=== PATIENT | female | born 1995 | race Caucasian/White ===

== ENCOUNTER 2016-11-03 21:11 | Emergency (ER) | payer BC, MEDICAID ==
[~2016-11-03] VITALS: Ht 170.2 cm; Wt 86.6 kg
[~2016-11-03 21:11] MED LIST: ANTI14DR4 OT; AZIT250T81 PO; HYDR-3729 PO; IBUP-1773 PO; LANS30TA3 PO; PREN1TAB71 PO
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
[2016-11-03] MEDS: ONDANSETRON 4 MG (ZOFRAN) ORAL DISSOLVE TAB PO ONE (23:10)
[2016-11-04 00:21] VITALS: BP 0/0
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
--- NOTE | 2016-11-04 07:39 | Diagnostic Imaging Report ---
INDICATION: Neck pain. COMPARISON: None. FINDINGS: 3 views of cervical column demonstrate normal alignment. There is no subluxation or fracture. No osseous lesion. IMPRESSION: Negative cervical spine. Dictated by: Dictated on workstation # [id number]
== END 2016-11-04 00:21 | disposition home or self-care (01) ==
LOC: EDUNIT# 21:11 → ER 21:13
DX: S29.011A Strain of muscle and tendon of front wall of thorax, initial encounter (principal); F17.210 Nicotine dependence, cigarettes, uncomplicated; V48.5XXA Car driver injured in noncollision transport accident in traffic accident, initial encounter
CPT/HCPCS: 71111; 72040; 72072; 84703; 99283

== ENCOUNTER 2017-07-12 22:15 | Emergency (ER) | payer OTHER ==
[~2017-07-12] VITALS: Ht 170.2 cm; Wt 84.4 kg
--- OUTSIDE RECORDS SUMMARY | 2017-07-12 22:21 | XMS REPORT ---
Author ARTURO Langford [facility] eClinicalWorks Address Unknown Phone Unavailable Care Team Providers Care Grails Web Application Developer Name Role Phone ARTURO VARGAS CP Unavailable Allergies No Known Allergies Problems Problem Type Condition ICD-9 Code Onset Dates Condition Status Problem Supervision of other normal V22.1 Active Problem GERD (gastroesophageal reflux disease) 530.81 Active Medications Medication Code System Code Instructions Start Date End Date Status Dosage Keflex [facility] [address]-07 500 MG Orally 4 times a day Dec 02, 2014Dec 1 capsule Results No Known Results Summary Purpose eClinicalWorks Submission
--- OUTSIDE RECORDS SUMMARY | 2017-07-12 22:21 | XMS REPORT ---
Author ARTURO Langford [facility] eClinicalWorks Address Unknown Phone Unavailable Care Team Providers Care Anodizer Name Role Phone ARTURO VARGAS CP Unavailable Allergies No Known Allergies Problems Problem Type Condition ICD-9 Code Onset Dates Condition Status Problem Supervision of other normal V22.1 Active Problem GERD (gastroesophageal reflux disease) 530.81 Active Medications No Known Medications Results No Known Results Summary Purpose eClinicalWorks Submission
--- OUTSIDE RECORDS SUMMARY | 2017-07-12 22:21 | XMS REPORT ---
Author ARTURO Langford [facility] eClinicalWorks Address Unknown Phone Unavailable Care Team Providers Care Pulp Plant Supervisor Name Role Phone ARTURO VARGAS CP Unavailable Allergies No Known Allergies Problems Problem Type Condition ICD-9 Code Onset Dates Condition Status Problem Supervision of other normal V22.1 Active Problem GERD (gastroesophageal reflux disease) 530.81 Active Medications No Known Medications Results No Known Results Summary Purpose eClinicalWorks Submission
--- OUTSIDE RECORDS SUMMARY | 2017-07-12 22:21 | XMS REPORT ---
Author Author JULIANA DAILY Organization [facility] Address [address] [place] [address] Care Team Providers Care Welfare Investigator Name Role Phone JULIANA DAILY Unavailable PROBLEMS Type Condition ICD9-CM Code [id number] Code Onset Dates Condition Status SNOMED Code Problem GERD (gastroesophageal reflux disease) 530.81 Active 178976140 Problem Intractable migraine with aura without status migrainosus G43.119 Active 055924320 Problem Severe major depression F32.2 Active 227365793 Problem PTSD (post-traumatic stress disorder) F43.10 Active 30270969 Problem Anxiety, generalized F41.1 Active 09836311 Problem Nightmares F51.5 Active 783960975 Problem Nightmare F51.5 Active 343415206 ALLERGIES Substance Reaction Event Type Date Status Penicillin V Potassium Unknown Drug Allergy May, Active Latex Unknown Non Drug Allergy May, Active SOCIAL HISTORY Never Assessed PLAN OF CARE Activity Details Follow Up Will schedule when device arrives Reason: VITAL SIGNS Height 67 in 2016-05-24 Weight 200.3 lbs 2016-05-24 Temperature 97.8 degrees Fahrenheit 2016-05-24 Heart Rate 90 bpm 2016-05-24 Respiratory Rate 18 2016-05-24 BMI 31.37 kg/m2 2016-05-24 Blood pressure systolic 128 mmHg 2016-05-24 Blood pressure diastolic 77 mmHg 2016-05-24 MEDICATIONS Medication Instructions Dosage Frequency Start Date End Date Duration Status Cephalexin 500 MG Orally every 12 hrs 1 tablet 12h Active RESULTS Name Result Date Reference Range TEST, URINE (IN HOUSE) 2016-05-24 RESULTS Negative Lot # [id number] Control + Exp date PROCEDURES No Known procedures IMMUNIZATIONS No Known Immunizations MEDICAL (GENERAL) HISTORY Type Description Date Medical History migraine headaches Surgical History wisdom teeth extraction Hospitalization History Childbirth only
--- OUTSIDE RECORDS SUMMARY | 2017-07-12 22:21 | XMS REPORT ---
Author ARTURO Langford [facility] eClinicalWorks Address Unknown Phone Unavailable Care Team Providers Care Welt Edge Rounder Name Role Phone ARTURO VARGAS CP Unavailable Allergies No Known Allergies Problems Problem Type Condition ICD-9 Code Onset Dates Condition Status Problem Supervision of other normal V22.1 Active Assessment Supervision of other normal V22.1 Active Problem GERD (gastroesophageal reflux disease) 530.81 Active Assessment Group B Streptococcus carrier, antepartum 648.93 Active Medications No Known Medications Procedures Procedure Coding System Code Date Office Visit, Est Pt., Level 3 CPT-4 11537 Nov 23, 2014 URINE-NO MICRO CPT-4 51007 Nov 23, 2014 Vital Signs Date/Time: Nov 23, 2014 Temperature 97.1 F Weight 205.5 lbs Height 67 in BMI 32.186 Index Blood Pressure Diastolic 78 mmHg Blood Pressure Systolic 124 mmHg Cardiac Monitoring Heart Rate 78 bpm Results No Known Results Summary Purpose eClinicalWorks Submission
--- OUTSIDE RECORDS SUMMARY | 2017-07-12 22:21 | XMS REPORT ---
Author Author MALDONADO LEONARD Organization [facility] Address [address] [place] [address] Care Team Providers Care Logistics Solution Manager Name Role Phone MALDONADO LEONARD Unavailable PROBLEMS Type Condition ICD9-CM Code IND06-MI Code Onset Dates Condition Status SNOMED Code Problem GERD (gastroesophageal reflux disease) 530.81 Active 072084191 Problem Intractable migraine with aura without status migrainosus G43.119 Active 585618405 Problem Severe major depression F32.2 Active 565973202 Problem PTSD (post-traumatic stress disorder) F43.10 Active 18700391 Problem Anxiety, generalized F41.1 Active 26920297 Problem Nightmares F51.5 Active 480906310 Problem Nightmare F51.5 Active 414661716 ALLERGIES Substance Reaction Event Type Date Status Penicillin V Potassium Unknown Drug Allergy May, Active Latex Unknown Non Drug Allergy May, Active SOCIAL HISTORY Never Assessed PLAN OF CARE Activity Details Follow Up 2 Weeks, prn Reason: VITAL SIGNS Height 67 in 2016-05-11 Weight 201.9 lbs 2016-05-11 Temperature 98.2 degrees Fahrenheit 2016-05-11 Heart Rate 84 bpm 2016-05-11 Respiratory Rate 20 2016-05-11 BMI 31.62 kg/m2 2016-05-11 Blood pressure systolic 118 mmHg 2016-05-11 Blood pressure diastolic 62 mmHg 2016-05-11 MEDICATIONS Medication Instructions Dosage Frequency Start Date End Date Duration Status Keflex 500 MG Orally 3 times a day 1 capsule 8h May, May, 10 day(s) Active RESULTS No Results PROCEDURES No Known procedures IMMUNIZATIONS No Known Immunizations MEDICAL (GENERAL) HISTORY Type Description Date Medical History migraine headaches Surgical History wisdom teeth extraction Hospitalization History Childbirth only
--- OUTSIDE RECORDS SUMMARY | 2017-07-12 22:21 | XMS REPORT ---
Author ARTURO Langford [facility] eClinicalWorks Address Unknown Phone Unavailable Care Team Providers Care Manager Infusion Name Role Phone ARTURO VARGAS CP Unavailable Allergies No Known Allergies Problems Problem Type Condition ICD-9 Code Onset Dates Condition Status Problem Supervision of other normal V22.1 Active Problem GERD (gastroesophageal reflux disease) 530.81 Active Medications No Known Medications Results No Known Results Summary Purpose eClinicalWorks Submission
--- OUTSIDE RECORDS SUMMARY | 2017-07-12 22:21 | XMS REPORT ---
Author ARTURO Langford [facility] eClinicalWorks Address Unknown Phone Unavailable Care Team Providers Care Continuous Mining Machine Lode Miner Name Role Phone ARTURO VARGAS CP Unavailable Allergies No Known Allergies Problems Problem Type Condition ICD-9 Code Onset Dates Condition Status Problem Supervision of other normal V22.1 Active Assessment screening for streptococcus B V28.6 Active Problem GERD (gastroesophageal reflux disease) 530.81 Active Assessment Supervision of other normal V22.1 Active Medications No Known Medications Procedures Procedure Coding System Code Date DETECT AGNT MULT, DNA, AMPLI CPT-4 57370 Nov 16, 2014 Office Visit, Est Pt., Level 3 CPT-4 90134 Nov 16, 2014 URINE-NO MICRO CPT-4 90949 Nov 16, 2014 Vital Signs Date/Time: Nov 16, 2014 Temperature 98.2 F Weight 202.0 lbs Height 67 in BMI 31.638 Index Blood Pressure Diastolic 78 mmHg Blood Pressure Systolic 126 mmHg Cardiac Monitoring Heart Rate 88 bpm Results No Known Results Summary Purpose eClinicalWorks Submission
--- OUTSIDE RECORDS SUMMARY | 2017-07-12 22:21 | XMS REPORT ---
Author ARTURO Langford Organization eClinicalWorks Address Unknown Phone Unavailable Care Team Providers Care Specialist Icu Name Role Phone ARTURO VARGAS CP Unavailable Allergies No Known Allergies Problems Problem Type Condition Code Onset Dates Condition Status Problem GERD (gastroesophageal reflux disease) 530.81 Active Medications No Known Medications Results No Known Results Summary Purpose eClinicalWorks Submission
--- OUTSIDE RECORDS SUMMARY | 2017-07-12 22:21 | XMS REPORT ---
Author Author DOMINGUEZ UREÑA Organization [facility] Address [address] [place] [address] Care Team Providers Care Alternative Medicine Practitioner Name Role Phone DOMINGUEZ UREÑA Unavailable PROBLEMS Type Condition ICD9-CM Code [id number] Code Onset Dates Condition Status SNOMED Code Problem Anxiety, generalized F41.1 Active 53324576 Problem PTSD (post-traumatic stress disorder) F43.10 Active 08614048 Problem GERD (gastroesophageal reflux disease) 530.81 Active 696058596 Problem Nightmares F51.5 Active 130694168 Problem Nightmare F51.5 Active 818976543 ALLERGIES Substance Reaction Event Type Date Status Penicillin V Potassium Unknown Drug Allergy Mar, Active Latex Unknown Non Drug Allergy Mar, Active SOCIAL HISTORY No smoking Hx information available PLAN OF CARE Activity Details Follow Up prn Reason: VITAL SIGNS Height 67 in 2016-03-21 Weight 193.0 lbs 2016-03-21 Temperature 97.7 degrees Fahrenheit 2016-03-21 Heart Rate 90 bpm 2016-03-21 Respiratory Rate 18 2016-03-21 BMI 30.22 kg/m2 2016-03-21 Blood pressure systolic 110 mmHg 2016-03-21 Blood pressure diastolic 78 mmHg 2016-03-21 MEDICATIONS Medication Instructions Dosage Frequency Start Date End Date Duration Status Zithromax Z-Silvestre 250 MG Orally Once a day 2 tablets on the first day, then 1 tablet daily for 4 days 24h Mar, Mar, 5 day(s) Active RESULTS No Results PROCEDURES Procedure Date Ordered Related Diagnosis Body Site Office Visit, Est Pt., Level 3 Mar 21, 2016 IMMUNIZATIONS No Known Immunizations
--- OUTSIDE RECORDS SUMMARY | 2017-07-12 22:22 | XMS REPORT ---
Author Author SILVANO PARKINSON Organization [facility] Address [address] [place] [address] Care Team Providers Care Grain Packer Name Role Phone SILVANO PARKINSON Unavailable PROBLEMS Type Condition ICD9-CM Code [id number] Code Onset Dates Condition Status SNOMED Code Problem GERD (gastroesophageal reflux disease) 530.81 Active 551779527 Problem Intractable migraine with aura without status migrainosus G43.119 Active 084373116 Problem Severe major depression F32.2 Active 909699371 Problem PTSD (post-traumatic stress disorder) F43.10 Active 80572417 Problem Anxiety, generalized F41.1 Active 87917217 Problem Nightmares F51.5 Active 864204579 Problem Nightmare F51.5 Active 064626716 ALLERGIES Substance Reaction Event Type Date Status Penicillin V Potassium Unknown Drug Allergy May, Active Latex Unknown Non Drug Allergy May, Active SOCIAL HISTORY Never Assessed PLAN OF CARE Activity Details Follow Up prn Reason: VITAL SIGNS Height 67 in 2016-06-12 Weight 196.4 lbs 2016-06-12 Temperature 97.6 degrees Fahrenheit 2016-06-12 Heart Rate 94 bpm 2016-06-12 Respiratory Rate 20 2016-06-12 BMI 30.76 kg/m2 2016-06-12 Blood pressure systolic 112 mmHg 2016-06-12 Blood pressure diastolic 70 mmHg 2016-06-12 MEDICATIONS Unknown Medications RESULTS No Results PROCEDURES No Known procedures IMMUNIZATIONS No Known Immunizations MEDICAL (GENERAL) HISTORY Type Description Date Medical History migraine headaches Surgical History wisdom teeth extraction Hospitalization History Childbirth only
--- OUTSIDE RECORDS SUMMARY | 2017-07-12 22:22 | XMS REPORT ---
Author ARTURO Langford Organization eClinicalWorks Address Unknown Phone Unavailable Care Team Providers Care Inking Machine Tender Name Role Phone ARTURO VARGAS CP Unavailable Allergies No Known Allergies Problems Problem Type Condition Code Onset Dates Condition Status Problem GERD (gastroesophageal reflux disease) 530.81 Active Medications No Known Medications Results No Known Results Summary Purpose eClinicalWorks Submission
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
--- OUTSIDE RECORDS SUMMARY | 2017-07-12 22:22 | XMS REPORT ---
Author ARTURO Langford Organization [employer] Address Unknown Phone Unavailable Care Team Providers Care Quality Control Manager Name Role Phone ARTURO VARGAS CP Unavailable Allergies No Known Allergies Problems Problem Type Condition Code Onset Dates Condition Status Problem GERD (gastroesophageal reflux disease) 530.81 Active Medications No Known Medications Results No Known Results Summary Purpose [employer] Submission
--- OUTSIDE RECORDS SUMMARY | 2017-07-12 22:22 | XMS REPORT ---
Author Author MALDONADO LEONARD [facility] Address [address] [place] [address] Care Team Providers Care Data Processing Consultant Name Role Phone MALDONADO LEONARD Unavailable PROBLEMS Type Condition ICD9-CM Code [id number] Code Onset Dates Condition Status SNOMED Code Problem GERD (gastroesophageal reflux disease) 530.81 Active 507213556 Problem Intractable migraine with aura without status migrainosus G43.119 Active 585782460 Problem Severe major depression F32.2 Active 885738824 Problem PTSD (post-traumatic stress disorder) F43.10 Active 19248011 Problem Anxiety, generalized F41.1 Active 76909021 Problem Nightmares F51.5 Active 265271504 Problem Nightmare F51.5 Active 258753271 ALLERGIES Substance Reaction Event Type Date Status Penicillin V Potassium Unknown Drug Allergy July, Active Latex Unknown Non Drug Allergy July, Active SOCIAL HISTORY Never Assessed PLAN OF CARE Activity Details Follow Up 2 - 3 Days, prn Reason: VITAL SIGNS Height 67 in 2016-08-23 Weight 204.0 lbs 2016-08-23 Temperature 98.6 degrees Fahrenheit 2016-08-23 Heart Rate 96 bpm 2016-08-23 Respiratory Rate 22 2016-08-23 BMI 31.95 kg/m2 2016-08-23 Blood pressure systolic 125 mmHg 2016-08-23 Blood pressure diastolic 73 mmHg 2016-08-23 MEDICATIONS Medication Instructions Dosage Frequency Start Date End Date Duration Status PredniSONE 20 mg Orally for two days, then 2 daily for 2 days then one daily x 3 3 daily July, Aug, 10 days Active Chloraseptic 1.4 % Mouth/Throat every 2 hrs 5 applications to affected area as needed July, Active Azithromycin 250 MG Orally Once a day 2 tablets on the first day, then 1 tablet daily for 4 days 24h July, July, 5 day(s) Active ProAir HFA 108 (90 Base) MCG/ACT Inhalation every 4 hrs 2 puffs as needed 4h July, Active RESULTS No Results PROCEDURES No Known procedures IMMUNIZATIONS No Known Immunizations MEDICAL (GENERAL) HISTORY Type Description Date Medical History migraine headaches Surgical History wisdom teeth extraction Hospitalization History Childbirth only
--- OUTSIDE RECORDS SUMMARY | 2017-07-12 22:22 | XMS REPORT ---
Author ARTURO Langford Organization [employer] Address Unknown Phone Unavailable Care Team Providers Care Die Cutting Machine Operator Name Role Phone ARTURO VARGAS CP Unavailable Allergies, Adverse Reactions, Alerts Substance Reaction Event Type Penicillin V Potassium Info Not Available Drug Allergy Latex Info Not Available Non Drug Allergy Problems Problem Type Condition Code Onset Dates Condition Status Assessment Routine follow-up Z39.2 Active Assessment Encounter for Depo-Provera contraception Z30.42 Active Problem GERD (gastroesophageal reflux disease) 530.81 Active Assessment Depo contraception Z30.40 Active Medications No Known Medications Procedures Procedure Coding System Code Date Office Visit, Est Pt., Level 3 CPT-4 60865 Feb 01, 2015 DEPO PROVERA (150 MG/ML) CPT-4 J1050 Feb 01, 2015 URINE TEST CPT-4 99478 Feb 01, 2015 THER/PROPH/DIAG INJ, SC/IM CPT-4 52301 Feb 01, 2015 Vital Signs Date/Time: Feb 01, 2015 Temperature 99.2 F Weight 186.2 lbs Height 67 in BMI 29.16 Index Blood Pressure Diastolic 78 mmHg Blood Pressure Systolic 116 mmHg Cardiac Monitoring Heart Rate 72 bpm Results Name Result Date Reference Range Unit Abnormality Flag TEST, URINE (IN HOUSE) Summary Purpose [employer] Submission
[2017-07-12] MEDS ORDERED: RX-TRIMETH/SULFA. 160-800 MG (BACTRIM DS) TAB PPK#2 PO STA (22:39)
[2017-07-12] MEDS ORDERED: SERT25TA5 (22:40)
[2017-07-12] MEDS ORDERED: PROP20TA5 (22:40)
[2017-07-12] MEDS ORDERED: RX-HYDROCODONE/APAP 5/325 MG #4 TAB PK PO PRN (22:45)
[2017-07-12] MEDS ORDERED: SULF1TAB35 PO (22:58)
[2017-07-12] MEDS ORDERED: HYDR-757 PO (22:58)
--- NOTE | 2017-07-12 22:58 | ED Integumentary General ---
General Chief Complaint: -Female Stated Complaint: VAGINAL ABCESS Nursing Triage Note: PT PRESENTS TO ER WITH COMPLAINT OF BUMP IN PUBIC AREA. STATES SHE THOUGHT IT WAS AN INGROWN HAIR, BUT HAS PROGRESSIVELY WORSENED. Source: patient Exam Limitations: no limitations History of Present Illness Date Seen by Provider: Jul 12, 2017 Time Seen by Provider: 22:53 Initial Comments To ER with a report of possible abscess to the groin. She first noticed this about 3 weeks ago and believes it to be an ingrown hair from shaving. Attempted to resolve this at home with tweezers. About 3 days ago she noticed an increasing redness. Timing/Duration: constant, getting worse Severity: moderate Allergies and Home Medications Allergies Coded Allergies: Penicillins (Unverified Allergy, Unknown, 05/18/14) latex (Unverified Allergy, Unknown, 05/18/14) Patient Home Medication List Home Medication List Reviewed: Yes Constitutional: see HPI EENTM: see HPI Respiratory: no symptoms reported Cardiovascular: no symptoms reported Genitourinary: no symptoms reported Musculoskeletal: no symptoms reported Skin: see HPI Psychiatric/Neurological: No Symptoms Reported Endocrine: No Symptoms Reported Past Gerevhu-Wytxet-Xqwyal Hx Patient Social History Alcohol Use: Occasionally Uses Recreational Drug Use: No Smoking Status: Current Everyday Smoker Recent Foreign Travel: No Contact w/Someone Who Travel: No Recent Infectious Disease Expo: No Recent Hopitalizations: No Immunizations Up To Date Tetanus Booster (TDap): Less than 5yrs Past Medical History Surgeries: No Respiratory: No Cardiac: No Neurological: Yes Headaches /Migraines Reproductive Disorders: No Female Reproductive Disorders: Denies Sexually Transmitted Disease: No HIV/AIDS: No Genitourinary: No Gastrointestinal: No Musculoskeletal: No Endocrine: No HEENT: No Cancer: No Psychosocial: No Integumentary: No (scoria) Blood Disorders: No Adverse Reaction/Blood Tranf: No Family Medical History Autism in sibling G8 BROTHER, Onset:Childhood Cancer of mouth Physical Exam Vital Signs Vital Signs - First Documented 07/12/17 22:29 Temp 98.9 Pulse 88 Resp 20 B/P (MAP) 126/86 (99) Pulse Ox 97 O2 Delivery Room Air Capillary Refill : Less Than 3 Seconds General Appearance: WD/WN, no apparent distress HEENT: PERRL/EOMI, normal ENT inspection Neck: non-tender, full range of motion Respiratory: no respiratory distress, no accessory muscle use Gastrointestinal: normal bowel sounds, non tender Neurologic/Psychiatric: alert, normal mood/affect, oriented x 3 Skin: normal color, warm/dry Skin Problem Character: abscess, erythema, other (to the mons pubis is an area of erythema 16 centimeters in width by 8 cm in craniocaudal length with a small area of induration and fluctuance in the center) Procedures/Interventions I&D : Blade Size: 11 Packing/Drain: Idoform 04/05 Progress Area was anesthetized with 1 mL of 2% lidocaine with epinephrine. A stab incision was made with 11 blade scalpel. Loculations were broken up with blunt sterile Q-tip. Culture collected and sent to lab. Wound irrigated with Betadine/ saline solution then packed with about 1-2 inches of quarter-inch iodoform gauze. Covered with gauze. Progress/Results/Core Measures My Orders Orders - RITCHIE LAMBERT APRN Rx-Trimeth/Sulfameth Ds Tab (Rx-Bactrim/ (07/12/17 22:39) Rx-Hydrocodone/Apap 5-325 Mg (Rx-Vicodin (07/12/17 22:45) Wound Culture (07/12/17 22:39) Vital Signs/I&O 07/12/17 22:29 Temp 98.9 Pulse 88 Resp 20 B/P (MAP) 126/86 (99) Pulse Ox 97 O2 Delivery Room Air Blood Pressure Mean: 99 Departure Impression Primary Impression: abscess of mons pubis Disposition: 01 HOME, SELF-CARE Condition: Stable Departure-Patient Inst. Decision time for Depature: 22:55 Referrals: JULIANA DAILY MD (PCP) Primary Care Physician [facility] (Family) Primary Care Physician Patient Instructions: Abscess Incision and Drainage Add. Discharge Instructions: 1. Antibiotics as directed 2. Warm compresses to the area 3. Pain medication as needed 4. Return to ER for any fevers or worsening redness. Follow-up with your doctor next week for recheck. 5. Shaving creates small cuts in skin and is associated with abscess development. Trimming with trimmers however would not do this and is associated with fewer abscesses developing. 6. you may removed the packing tomorrow evening by simply pulling on it. If it falls out before then, that is fine also, just leave it out. You may shower and let water run over this starting tomorrow. Scripts Hydrocodone/Acetaminophen ([place] 5-325 Tablet) 1 Each Tablet 1 EACH PO Q4H PRN for PAIN-MODERATE TO SEVERE, #14 TAB Prov: RITCHIE LAMBERT APRN 07/12/17 Sulfamethoxazole/Trimethoprim (Bactrim Ds Tablet) 1 Each Tablet 1 EACH PO BID, #14 TAB Prov: RITCHIE LAMBERT APRN 07/12/17 RITCHIE LAMBERT APRN Jul 12, 2017 22:58
[2017-07-12 23:14] VITALS: BP 126/86
== END 2017-07-12 23:14 | disposition home or self-care (01) ==
LOC: EDUNIT# 22:15 → ER 22:17
DX: L02.215 Cutaneous abscess of perineum (principal); G43.909 Migraine, unspecified, not intractable, without status migrainosus; F17.200 Nicotine dependence, unspecified, uncomplicated; Z88.0 Allergy status to penicillin; Z80.0 Family history of malignant neoplasm of digestive organs; Z91.048 Other nonmedicinal substance allergy status
CPT/HCPCS: 87070; 87077; 87186; 87205; 99283

== ENCOUNTER 2017-08-28 23:03 | Emergency (ER) | payer OTHER ==
[~2017-08-28] VITALS: Ht 170.2 cm; Wt 88.0 kg
[~2017-08-28 23:03] MED LIST changes: +HYDR-757 PO; +PROP20TA5; +SERT25TA5; +SULF1TAB35 PO
--- OUTSIDE RECORDS SUMMARY | 2017-08-28 23:09 | XMS REPORT ---
Author Author JULIANA DAILY Organization [facility] Address [address] [place] [address] Care Team Providers Care Software Product Specialist Name Role Phone JULIANA DAILY Unavailable PROBLEMS Type Condition ICD9-CM Code HYJ72-DI Code Onset Dates Condition Status SNOMED Code Problem GERD (gastroesophageal reflux disease) 530.81 Active 932158861 Problem PTSD (post-traumatic stress disorder) F43.10 Active 47595061 Problem Anxiety, generalized F41.1 Active 12556764 Problem Chronic bronchitis, unspecified chronic bronchitis type J42 Active 62526602 Problem Other atopic dermatitis L20.89 Active 75628899 Problem Nightmares F51.5 Active 785151263 Problem Nightmare F51.5 Active 217515930 Problem Severe major depression F32.2 Active 388495357 Problem Intractable migraine with aura without status migrainosus G43.119 Active 599625890 ALLERGIES No Information ENCOUNTERS Encounter Location Date Diagnosis [facility] [address] [address]648 July, [facility] [address] 05117 [address]5494 July, [facility] [address] 17963 -7733 Jul, [facility] [address] [place] [id number] [place] [address] 68711 -7998 Jul, [facility] [address] 69453 -4371 Jul, [facility] [address] [place] [id number] [place] [address] 27548 -2355 Jul, Visit for wound care Z51.89 [facility] [address] [place] [address] Jul, [facility] [id number] [place] [address] 69372 -4472 Jul, Abscess L02.91 [facility] [id number] [place] [address] 05659 -8243 Jul, [facility] [id number] [place] [address] 62517 -8062 Jul, Abscess after procedure T81.4XXA [facility] [address] [place] [id number] [place] [address] 69707 -7410 Jul, Abscess after procedure T81.4XXA [facility] [address] [place] [address] [id number] [place] [address] 18687 -1293 Jul, Abscess L02.91 [place] [address] [place] [address] [id number] [place] [address] 53958- 1257 May, Chronic bronchitis, unspecified chronic bronchitis type J42 [facility] [address] [place] [address] [id number] [place] [address] 64424 -7297 May, Viral gastroenteritis A08.4 [place] [address] [place] [id number] [place] [address] 32714- 7461 May, Rib pain on right side R07.81 [facility] [address] [place] [id number] [place] [address] 70601 -6801 May, [facility] [id number] [place] [address] 34409- 5004 May, Severe major depression F32.2 [facility] [address] [place] [id number] [place] [address] 85942 -4367 May, Chlamydia infection A74.9 [facility] [id number] [place] [address] Apr, [facility] [id number] [place] [address] 89591 -7853 Apr, Screen for STD (sexually transmitted disease) Z11.3 [facility] [id number] [place] [address] 74389 -0503 Apr, Fever R50.9 and Acute nasopharyngitis J00 [facility] [id number] [place] [address] 76948- 9557 Mar, Cough R05 [place] [address] 47353- 2195 Mar, Severe major depression F32.2 ; Cough R05 and Other atopic dermatitis L20.89 [facility] [place] [address] 03364 -1295 Mar, Acute bacterial conjunctivitis of both eyes H10.33 [place] [id number] [place] [address] 99431- 4385 Mar, Severe major depression F32.2 and Intractable migraine with aura without status migrainosus G43.119 [facility] [id number] [place] [address] 33689 -8689 Jan, Bronchitis J40 [facility] [place] [address] [id number] [place] [address] 04703 -4396 Jan, Acute bronchitis J20.9 [place] [address] [id number] [place] [address] 62910- 1871 Dec, [facility] [id number] [place] [address] 77629- 6437 Dec, Severe major depression F32.2 [facility] [place] [id number] [place] [address] 38494 -4187 Dec, [facility] [id number] [place] [address] 32411- 6116 Dec, Anxiety, generalized F41.1 ; Severe major depression F32.2 and Intractable migraine with aura without status migrainosus G43.119 [facility] [place] [id number] [place] [address] 87129 -2781 12 Dec, 2016 Screen for STD (sexually transmitted disease) Z11.3 and Infection due to trichomonas (vaginalis) A59.[address] 57048- 5742 05 Dec, 2016 Severe major depression F32.2 and Intractable migraine with aura without status migrainosus G43.[address] 87462- 8845 Oct, Anxiety, generalized F41.1 ; PTSD (post-traumatic stress disorder) F43.10 and Nightmares F51.[address] 29904- 8993 Oct, Anxiety, generalized F41.1 ; PTSD (post-traumatic stress disorder) F43.10 and Nightmares F51.[address] 53752- 0671 Oct, Anxiety, generalized F41.1 ; PTSD (post-traumatic stress disorder) F43.10 and Nightmares F51.[address] 89301- 1666 Oct, Myalgia M79.[address] 69501- 6108 Sep, Skin infection L08.[address] 66167- 2830 July, Bronchitis J40 [facility] [address] 024[address] -6572 May, Acute middle ear effusion, right H65.191 [facility] [address] 76810 -3195 13 May, 2016 Gastroenteritis and colitis, viral A08.[address] [place] [address]- 9990 May, control counseling Z30.09 [place] [address] 07665- 9246 May, Abscess L02.91 [place] [address] [place] [id number] [place] [address] 11990- 6683 Mar, Bronchitis J40 [facility] [place] [id number] [place] [address] May [place] [address] [place] [address] [id number] [place] [address] 25345- 8436 Apr, [place] [address] 84460- 9413 Apr, Fungal rash of torso B36.9 ; Encounter for Depo-Provera contraception Z30.42 ; Breast feeding status of mother Z39.1 ; Rash R21 and Tension headache G44.209 [place] [id number] [place] [address] 69956- 5626 Apr, [place] [address] 34405- 6431 Jan, Routine follow-up Z39.2 ; Encounter for Depo- Provera contraception Z30.42 and Depo contraception Z30.40 [place] [id number] [place] [address] 69331- 7588 Dec, [place] [address] [id number] [place] [address] 77878- 3129 Oct, [place] [address] [address] [id number] [place] [address] 60792- 9216 Oct, Supervision of other normal V22.1 and Group B Streptococcus carrier, antepartum 648.93 [place] [address] [place] [address] [id number] [place] [address] 71900- 9253 Oct, [place] [address] 37129- 0755 Oct, screening for streptococcus B V28.6 and Supervision of other normal V22.1 [place] [address] [place] [address] [id number] [place] [address] 95735- 7755 Oct, [facility] [id number] [place] [address] 08898- 6592 Oct, [place] [address] 91811- 2965 Oct, [place] [address] [place] [id number] [place] [address] 85581- 6545 Sep, Supervision of other normal V22.1 and GERD ( gastroesophageal reflux disease) 530.81 [place] [address] [place] [id number] [place] [address] 64260- 9452 Sep, [place] [address] [place] [address] [id number] [place] [address] 58718- 0589 Aug, [place] [address] [address] [id number] [place] [address] 06530- 7493 Aug, Supervision of other normal V22.1 and TDAP DX V06.1 [place] [address] [place] [address] [id number] [place] [address] 09397- 9503 Aug, Supervision of other normal V22.1 ; Insect bite 919.4 and GERD (gastroesophageal reflux disease) 530.81 [place] [address] [id number] [place] [address] 55241- 6212 Aug, [place] [address] [place] [address] [id number] [place] [address] 59321- 4308 July, [place] [address] [place] [address] [id number] [place] [address] 84171- 1127 July, Screening for diabetes mellitus V77.1 ; Screening, iron deficiency anemia V78.0 and Supervision of other normal V22.1 [place] [address] [id number] [place] [address] 14548- 7841 July, [facility] [place] [facility] [address] [id number] [place] [address]- 3454 Jul, [facility] [place] [facility] [address] [id number] [place] [address]- 6734 Jul, [facility] [place] [facility] [address] [id number] [place] [address]- 2659 May, [facility] [place] [facility] [address] [id number] [place] [address]- 8986 May, [facility] [place] [facility] [address] [id number] [place] [address]- 7881 May, [facility] [place] [facility] [address] [id number] [place] [address]- 0647 May, [facility] [place] [facility] [address] [facility] [id number] [place] [address]- 6416 May, [facility] [place] [facility] [address] [id number] [address]- 7548 May, [facility] [place] [facility] [address] [id number] [place] [address]- 1558 May, [facility] [place] [facility] [address] [id number] [place] [address]- 5148 May, [facility] [place] [facility] [address] [id number] [place] [address]- 0817 May, [facility] [place] [facility] [address] [id number] [address]- 6574 May, [facility] [place] [facility] [address] [id number] [place] 7925 May, [facility] [place] [facility] [address] [id number] [place]- 7615 May, [facility] [place] [facility] [address] [facility] [id number] [place] [address]- 2468 Apr, [facility] [place] [facility] [address] [facility] [id number] [place] [address]- 4799 Apr, [facility] [address] [facility] [id number] [place] 7480 Apr, [facility] [address] [facility] [id number] [place] 8491 Apr, [facility] [address] [facility] [id number] [place] [address]21 Mar, [facility] [address] [facility] [id number] [place] 8739 Mar, IMMUNIZATIONS No Known Immunizations SOCIAL HISTORY Never Assessed REASON FOR VISIT Requests return call PLAN OF CARE VITAL SIGNS MEDICATIONS No Known Medications RESULTS No Results PROCEDURES No Known procedures INSTRUCTIONS MEDICATIONS ADMINISTERED No Known Medications MEDICAL (GENERAL) HISTORY Type Description Date Medical History migraine headaches Surgical History wisdom teeth extraction Hospitalization History Childbirth only
--- OUTSIDE RECORDS SUMMARY | 2017-08-28 23:10 | XMS REPORT ---
Author Author JARED WEISS [facility] Address [address] [place] [address] Care Team Providers Care Laboratory Director Name Role Phone JARED WEISS Unavailable PROBLEMS Type Condition ICD9-CM Code JWN29-ZE Code Onset Dates Condition Status SNOMED Code Problem GERD (gastroesophageal reflux disease) 530.81 Active 609479608 Problem PTSD (post-traumatic stress disorder) F43.10 Active 28267033 Problem Anxiety, generalized F41.1 Active 22795384 Problem Chronic bronchitis, unspecified chronic bronchitis type J42 Active 72529467 Problem Other atopic dermatitis L20.89 Active 95000218 Problem Nightmares F51.5 Active 383523377 Problem Nightmare F51.5 Active 305533004 Problem Severe major depression F32.2 Active 197793071 Problem Intractable migraine with aura without status migrainosus G43.119 Active 605673201 ALLERGIES No Information ENCOUNTERS Encounter Location Date Diagnosis [facility] [id number] [place] [address] 53098 -4900 Jul, Abscess after procedure T81.4XXA [facility] [id number] [place] [address] 22465 -8675 18 Jul, 2017 Abscess after procedure T81.4XXA [facility] [id number] [place] [address] 88213 -2731 17 Jul, 2017 Abscess L02.91 [facility] [id number] [place] [address] 07874- 5531 30 May, 2017 Chronic bronchitis, unspecified chronic bronchitis type J42 [facility] [id number] [place] [address] 65808 -1839 24 May, 2017 Viral gastroenteritis A08.4 [facility] [address] 57096- 9332 May, Rib pain on right side R07.81 [facility] [place] [address] [place] [address] 63431 -3559 May, [facility] [address] [place] [id number] [place] [address] 93020- 0340 May, Severe major depression F32.2 [facility] [place] [address] [address] [id number] [place] [address] 60975 -3455 May, Chlamydia infection A74.9 [facility] [address] [place] [id number] [place] [address] Apr, [facility] [place] [address] [address] [id number] [place] [address] 80935 -1902 Apr, Screen for STD (sexually transmitted disease) Z11.3 [facility] [place] [id number] [place] [address] 78546 -7442 Apr, Fever R50.9 and Acute nasopharyngitis J00 [place] [address] [place] [id number] [place] [address] 29664- 0738 Mar, Cough R05 [place] [address] [place] [id number] [place] [address] 09939- 2255 Mar, Severe major depression F32.2 ; Cough R05 and Other atopic dermatitis L20.89 [facility] [place] [id number] [place] [address] 36314 -2073 Mar, Acute bacterial conjunctivitis of both eyes H10.33 [place] [address] [place] [id number] [place] [address] 26553- 4130 Mar, Severe major depression F32.2 and Intractable migraine with aura without status migrainosus G43.119 [facility] [place] [id number] [place] [address] 47644 -0956 Jan, Bronchitis J40 [facility] [place] [id number] [place] [address] 90257 -3252 Jan, Acute bronchitis J20.9 [place] [address] [place] [id number] [place] [address] 61016- 9958 Dec, [place] [address] [place] [id number] [place] [address] 38687- 9675 Dec, Severe major depression F32.2 [facility] [place] [address] [id number] [place] [address] 41988 -3687 Dec, [place] [address] [place] [id number] [place] [address] 83590- 6625 19 Dec, 2016 Anxiety, generalized F41.1 ; Severe major depression F32.2 and Intractable migraine with aura without status migrainosus G43.119 [facility] IN [place] [address] [place] [address] 83451 -5583 12 Dec, 2016 Screen for STD (sexually transmitted disease) Z11.3 and Infection due to trichomonas (vaginalis) A59.9 [place] [address] [place] [address] 29848- 0679 05 Dec, 2016 Severe major depression F32.2 and Intractable migraine with aura without status migrainosus G43.119 [place] [address] [place] [address] 93024- 5282 Oct, Anxiety, generalized F41.1 ; PTSD (post-traumatic stress disorder) F43.10 and Nightmares F51.5 [place] [address] [place] [address] 69868- 8174 Oct, Anxiety, generalized F41.1 ; PTSD (post-traumatic stress disorder) F43.10 and Nightmares F51.5 [place] [address] [place] [address] 70041- 8816 08 Oct, 2016 Anxiety, generalized F41.1 ; PTSD (post-traumatic stress disorder) F43.10 and Nightmares F51.5 [place] [address] [place] [id number] [place] [address] 60918- 2363 Oct, Myalgia M79.1 [place] [address] [place] [address] 55032- 1414 Sep, Skin infection L08.9 [place] [address] [place] [id number] [place] [address] 65770- 0595 July, Bronchitis J40 [facility] [place] [address] [place] [id number] [place] [address] 47494 -7609 May, Acute middle ear effusion, right H65.191 [facility] [place] [address] [place] [id number] [place] [address] 32651 -2252 May, Gastroenteritis and colitis, viral A08.4 [place] [address] [place] [id number] [place] [address] 84960- 4925 May, control counseling Z30.09 [place] [address] [place] [id number] [place] [address] 21473- 7875 May, Abscess L02.91 [place] [address] [place] [id number] [place] [address] 09205- 9417 Mar, Bronchitis J40 [facility] [address] [id number] [place] [address] May [place] [address] [place] [address] 38593- 7594 Apr, [place] [address] [place] [id number] [place] [address] 31807- 1637 Apr, Fungal rash of torso B36.9 ; Encounter for Depo-Provera contraception Z30.42 ; Breast feeding status of mother Z39.1 ; Rash R21 and Tension headache G44.209 [place] [address] [place] [address] 22234- 3032 Apr, [place] [address] [place] [address] 03840- 4220 Jan, Routine follow-up Z39.2 ; Encounter for Depo- Provera contraception Z30.42 and Depo contraception Z30.40 [facility] [address] [place] [id number] [place] [address] 64696- 8080 Dec, [facility] [address] [place] [id number] [place] [address] 74868- 0094 Oct, [place] [address] 90131- 9718 Oct, Supervision of other normal V22.1 and Group B Streptococcus carrier, antepartum 648.93 [facility] [address] [place] [id number] [place] [address] 22994- 4385 Oct, [place] [address] [place] [id number] [place] [address] 01770- 8200 Oct, screening for streptococcus B V28.6 and Supervision of other normal V22.1 [place] [address] 75313- 6207 Oct, [place] [address] [place] [id number] [place] [address] 63937- 3243 Oct, [place] [address] 97629- 7845 Oct, [place] [address] [place] [id number] [place] [address] 80890- 2632 Sep, Supervision of other normal V22.1 and GERD ( gastroesophageal reflux disease) 530.81 [facility] [address] [place] [address] 21735- 5556 Sep, [place] [address] [place] [id number] [place] [address] 23162- 8446 Aug, [place] [address] [place] [id number] [place] [address] 51594- 1550 Aug, Supervision of other normal V22.1 and TDAP DX V06.1 [place] [address] 44412- 6620 Aug, Supervision of other normal V22.1 ; Insect bite 919.4 and GERD (gastroesophageal reflux disease) 530.81 [facility] [address] [place] [id number] [place] [address] 83039- 6831 Aug, [facility] [address] [place] [id number] [place] [address] 94691- 2466 July, [facility] [address] 94031- 4175 July, Screening for diabetes mellitus V77.1 ; Screening, iron deficiency anemia V78.0 and Supervision of other normal V22.1 [facility] [address] [place] [id number] [place] [address] 73734- 9604 July, [facility] [address] [place] [address] [id number] [place] [address] 95138- 2519 Jul, [facility] [address] [place] [id number] [place] [address] 11146- 8686 Jul, [facility] [address] [place] [address] [id number] [place] [address] 41811- 8080 May, [facility] [address] [place] [id number] [place] [address] 72940- 5352 May, [facility] [address] [address]- 3793 May, [facility] [address] [address] [id number] [place] [address] 56355- 4073 May, [facility] [id number] [place] [address] 18820- 5595 May, [facility] [id number] [place] [id number]- [id number] May, [facility] [id number] [place] [id number]- [phone] May, [facility] [id number], [place] [address] May, [facility] [id number] [place] [address] May, 2014 [facility] [id number] [address] May, [facility] [id number] [place] [address] May, 2014 [facility] [id number] [place] [address] May, [facility] [id number] [place] [address] Apr, [facility] [id number], [place] [address] Apr, [facility] [id number] [place] [address] Apr, [facility] [id number], [place] [address] Apr, [facility] [id number], [place] [address] Mar, [facility] [id number], [place] [address] Mar, IMMUNIZATIONS No Known Immunizations SOCIAL HISTORY Never Assessed REASON FOR VISIT f/u PLAN OF CARE Activity Details Follow Up Next available, 3 Weeks Reason:Depression, PTSD, Anxiety VITAL SIGNS MEDICATIONS Unknown Medications RESULTS No Results PROCEDURES Procedure Date Ordered Result Body Site Psychotherapy, patient &/family, 30 minutes, established patient Nov 29, 2016 INSTRUCTIONS MEDICATIONS ADMINISTERED No Known Medications MEDICAL (GENERAL) HISTORY Type Description Date Medical History migraine headaches Surgical History wisdom teeth extraction Hospitalization History Childbirth only
--- OUTSIDE RECORDS SUMMARY | 2017-08-28 23:10 | XMS REPORT ---
Author Author SILVANO Simmons Organization [facility] Address [address] [place] [address] Care Team Providers Care Back Facer Name Role Phone SILVANO Simmons Unavailable PROBLEMS Type Condition ICD9-CM Code [id number] Code Onset Dates Condition Status SNOMED Code Problem GERD (gastroesophageal reflux disease) 530.81 Active 726115695 Problem PTSD (post-traumatic stress disorder) F43.10 Active 34314200 Problem Anxiety, generalized F41.1 Active 28821361 Problem Chronic bronchitis, unspecified chronic bronchitis type J42 Active 37561114 Problem Other atopic dermatitis L20.89 Active 53586329 Problem Nightmares F51.5 Active 528714983 Problem Nightmare F51.5 Active 551930282 Problem Severe major depression F32.2 Active 157577074 Problem Intractable migraine with aura without status migrainosus G43.119 Active 057917329 ALLERGIES No Information ENCOUNTERS Encounter Location Date Diagnosis [facility] [id number] [place] [address] 11792 -8865 July, [facility] [address] [id number] [place] [address] 51249 -5436 July, [facility] [id number] [place] [address] 11890 -1528 Jul, [facility] [id number] [place] [address] 90641 -1655 Jul, [facility] [id number] [place] [address] 75444 -1389 Jul, [facility] [id number] [place] [address] 67689 -7936 Jul, Visit for wound care Z51.89 [facility] [address] [address] Jul, [facility] [address] [place] [address] 99469 -4452 Jul, Abscess L02.91 [facility] [address] [address] Jul, [facility] [id number] [place] [address] 37499 -4953 Jul, Abscess after procedure T81.4XXA [facility] [address] [place] [address] 63226 -6093 18 Jul, 2017 Abscess after procedure T81.4XXA [facility] [address] [place] [address] 73583 -0963 Jul, Abscess L02.91 [place] [id number] [place] [address] 52473- 2919 May, Chronic bronchitis, unspecified chronic bronchitis type J42 [facility] [address] [place] [address] 76703 -8660 May, Viral gastroenteritis A08.4 [place] [address] [address] 8960 May, Rib pain on right side R07.81 [facility] [address], [place] [address] May, [facility] [address] [address] 3695 May, Severe major depression F32.2 [facility] [address] [place] [address] 57197 -0302 05 May, 2017 Chlamydia infection A74.9 [facility] [address] [id number] [address] Apr, [facility] [id number] [place] [address] 93392 -3850 Apr, Screen for STD (sexually transmitted disease) Z11.3 [facility]ALK [facility] [place] [address] 89117 -9468 Apr, Fever R50.9 and Acute nasopharyngitis J00 [place] [address] 28108- 1071 Mar, Cough R05 [place] [address] 83374- 7625 Mar, Severe major depression F32.2 ; Cough R05 and Other atopic dermatitis L20.89 [facility] WALK IN [place] [address] 44837 -2368 Mar, Acute bacterial conjunctivitis of both eyes H10.[address] 29740- 8228 Mar, Severe major depression F32.2 and Intractable migraine with aura without status migrainosus G43.119 [facility]ALK IN [place] [address] 61053 -0658 Jan, Bronchitis J40 [facility]ALK [place] [address] 27263 -1231 Jan, Acute bronchitis J20.9 [place] [address] 14109- 8836 Dec, [place] [address] [place] [id number] [place] [address] 43253- 3074 Dec, Severe major depression F32.2 [facility]ALK [place] [address] 73629 -5480 Dec, [place] [address] 19499- 3761 Dec, Anxiety, generalized F41.1 ; Severe major depression F32.2 and Intractable migraine with aura without status migrainosus G43.119 [facility] [place] [address] [id number] [place] [address] 21166 -8029 12 Dec, 2016 Screen for STD (sexually transmitted disease) Z11.3 and Infection due to trichomonas (vaginalis) A59.9 [place] [address] [id number] [place] [address] 12059- 3393 05 Dec, 2016 Severe major depression F32.2 and Intractable migraine with aura without status migrainosus G43.119 [place] [address] 18243- 6838 Oct, Anxiety, generalized F41.1 ; PTSD (post-traumatic stress disorder) F43.10 and Nightmares F51.[address] [address]53- 1937 Oct, Anxiety, generalized F41.1 ; PTSD (post-traumatic stress disorder) F43.10 and Nightmares F51.[address] 92380- 9423 Oct, Anxiety, generalized F41.1 ; PTSD (post-traumatic stress disorder) F43.10 and Nightmares F51.5 [place] [id number] [place] [address] 01620- 8631 Oct, Myalgia M79.[address] 12206- 7154 Sep, Skin infection L08.[address] 68174- 0967 July, Bronchitis J40 [facility] WALK IN [address] 43170 -8043 May, Acute middle ear effusion, right H65.191 [facility] WALK IN [address] 31136 -0216 13 May, 2016 Gastroenteritis and colitis, viral A08.4 [place] [id number] [place] [address] 38144- 4051 May, control counseling Z30.09 [place] [address] 41892- 5590 May, Abscess L02.91 [place] [address] [place] [id number] [place] [address] 28984- 5827 Mar, Bronchitis J40 [facility] [place] [id number] [place] [address] May [place] [address] [place] [id number] [place] [address] 39245- 1436 Apr, [place] [address] [place] [id number] [place] [address] 38373- 4576 Apr, Fungal rash of torso B36.9 ; Encounter for Depo-Provera contraception Z30.42 ; Breast feeding status of mother Z39.1 ; Rash R21 and Tension headache G44.209 [place] [address] [id number] [place] [address] 66942- 3844 Apr, [place] [address] [id number] [place] [address] 23932- 7223 Jan, Routine follow-up Z39.2 ; Encounter for Depo- Provera contraception Z30.42 and Depo contraception Z30.40 [place] [address] [place] [id number] [place] [address] 43968- 4967 Dec, [place] [address] [place] [id number] [place] [address] 87875- 4427 Oct, [place] [address] [place] [address] [id number] [place] [address] 35740- 5938 Oct, Supervision of other normal V22.1 and Group B Streptococcus carrier, antepartum 648.93 [place] [address] [place] [id number] [place] [address] 51847- 2104 Oct, [place] [address] [place] [address]- 5445 Oct, screening for streptococcus B V28.6 and Supervision of other normal V22.1 [place] [address] [place] [id number] [place] [address] 02619- 9712 Oct, [facility] [address] [place] [address] [id number] [place] [address] 39247- 5275 Oct, [place] [address] 76782- 0158 Oct, [place] [address] 18612- 4685 Sep, Supervision of other normal V22.1 and GERD ( gastroesophageal reflux disease) 530.81 [place] [address] [place] [id number] [place] [address] 67744- 2720 Sep, [place] [address] 20823- 3761 Aug, [place] [address] [place] [id number] [place] [address] 59565- 0514 Aug, Supervision of other normal V22.1 and TDAP DX V06.1 [place] [address] [place] [id number] [place] [address] 38993- 8192 Aug, Supervision of other normal V22.1 ; Insect bite 919.4 and GERD (gastroesophageal reflux disease) 530.81 [place] [address] [place] [id number] [place] [address] 28544- 7271 Aug, [place] [address] [place] [id number] [place] [address] 96241- 5656 July, [place] [address] [place] [id number] [place] [address] 45160- 4358 July, Screening for diabetes mellitus V77.1 ; Screening, iron deficiency anemia V78.0 and Supervision of other normal V22.1 [place] [address] [place] [id number] [place] [address] 58710- 1826 July, [facility] [place] [facility] [address] [id number] [place] [address] 8101 Jul, [facility] [place] [facility] [address] [id number] [place] [address]- 7570 Jul, [facility] [place] [facility] [address] [facility] [id number] [place] [address]- 0569 May, [facility] [place] [facility] [address] [id number], [place] [address] 9411 May, [facility] [place] [facility] [address] [id number] [place] [address]- 4800 May, [facility] [place] [facility] [address] [facility] [id number] [place] [address]- 4527 May, [facility] [place] [facility] [address] [facility] [id number], [place] [address]- 0468 May, [facility] [place] [facility] [address] [facility] [id number], [place] [address]- 6078 May, [facility] [place] [facility] [address] [facility] [id number], [place] [address]- 3451 May, [facility] [place] [facility] [address] [facility] [id number], [place] [address]- 1448 May, [facility] [place] [facility] [address] [facility] [id number], [place] [address]- 0748 May, [facility] [place] [facility] [address] [facility] [id number], [place] [address]- 6729 May, [facility] [place] [facility] [address] [facility] [id number] [place] [address]- 6753 May, [facility] [place] [facility] [address] [facility] [id number][place] 4361 May, [facility] [place] [facility] [address] [facility] [id number], [place] [address]- 2965 Apr, [facility] [place] [facility] [address] [facility] [id number], [place] [address]- 2937 Apr, [facility] [address] [facility] [id number], [place] [address]- 7459 Apr, [facility] [address] [facility] [id number], [place] [address]- 9292 Apr, [facility] [address] [facility] [id number], [place] [address]- 7702 Mar, [facility] [address] [facility] [id number] [address] Mar, IMMUNIZATIONS No Known Immunizations SOCIAL HISTORY Never Assessed REASON FOR VISIT PLAN OF CARE VITAL SIGNS MEDICATIONS No Known Medications RESULTS No Results PROCEDURES No Known procedures INSTRUCTIONS MEDICATIONS ADMINISTERED No Known Medications MEDICAL (GENERAL) HISTORY Type Description Date Medical History migraine headaches Surgical History wisdom teeth extraction Hospitalization History Childbirth only
--- OUTSIDE RECORDS SUMMARY | 2017-08-28 23:10 | XMS REPORT ---
Author Author JARED WEISS [facility] Address [address] [place] [address] Care Team Providers Care Marking Room Supervisor Name Role Phone JARED WEISS Unavailable PROBLEMS Type Condition ICD9-CM Code FOY26-RX Code Onset Dates Condition Status SNOMED Code Problem GERD (gastroesophageal reflux disease) 530.81 Active 278515728 Problem PTSD (post-traumatic stress disorder) F43.10 Active 35460019 Problem Anxiety, generalized F41.1 Active 72970022 Problem Chronic bronchitis, unspecified chronic bronchitis type J42 Active 80634739 Problem Other atopic dermatitis L20.89 Active 88073980 Problem Nightmares F51.5 Active 967531353 Problem Nightmare F51.5 Active 883265945 Problem Severe major depression F32.2 Active 018467878 Problem Intractable migraine with aura without status migrainosus G43.119 Active 489370197 ALLERGIES No Information ENCOUNTERS Encounter Location Date Diagnosis [facility] [address] [address]32 20 Jul, 2017 [facility] [address] 30544 -6897 Jul, Abscess after procedure T81.4XXA [facility] [address] [place] [id number] [place] [address] 69101 -5695 18 Jul, 2017 Abscess after procedure T81.4XXA [facility] [address] 93461 -3794 17 Jul, 2017 Abscess L02.91 [facility] [address] 10386- 7275 30 May, 2017 Chronic bronchitis, unspecified chronic bronchitis type J42 [facility] [address] 12436 -4824 May, Viral gastroenteritis A08.4 [facility] [address] [place] [address] [id number] [place] [address] 51784- 7508 May, Rib pain on right side R07.81 [facility] WALK IN [place] [address] [place] [id number] [place] [address] 65946 -1873 May, [facility] [address] [place] [id number] [place] [address] 63525- 3589 May, Severe major depression F32.2 [facility]ALK IN [place] [address] [place] [id number] [place] [address] 02878 -8573 May, Chlamydia infection A74.9 [facility] [address] [place] [id number] [place] [address] Apr, [facility]ALK [place] [address] [place] [id number] [place] [address] 37309 -5826 Apr, Screen for STD (sexually transmitted disease) Z11.3 [facility]ALK IN [place] [address] [place] [id number] [place] [address] 86664 -9071 Apr, Fever R50.9 and Acute nasopharyngitis J00 [place] [address] [place] [id number] [place] [address] 76145- 0447 Mar, Cough R05 [place] [address] [place] [id number] [place] [address] 31574- 9788 Mar, Severe major depression F32.2 ; Cough R05 and Other atopic dermatitis L20.89 [facility]ARE [facility] [address] [place] [id number] [place] [address] 23943 -6063 Mar, Acute bacterial conjunctivitis of both eyes H10.33 [place] [address] [place] [id number] [place] [address] 55439- 4141 Mar, Severe major depression F32.2 and Intractable migraine with aura without status migrainosus G43.119 [facility] WALK IN [facility] [address] [place] [id number] [place] [address] 03219 -1960 Jan, Bronchitis J40 [facility] WALK IN [facility] [address], [place] [address] Jan, Acute bronchitis J20.9 [facility] [address] [place] [id number] [place] [address] 16958- 6820 Dec, [place] [address] [place] [id number] [place] [address] 31549- 5667 Dec, Severe major depression F32.2 [facility] WALK IN [facility] [address] [place] [id number] [place] [address] 31154 -4937 Dec, [place] [address] [place] [id number] [place] [address] 11275- 3876 Dec, Anxiety, generalized F41.1 ; Severe major depression F32.2 and Intractable migraine with aura without status migrainosus G43.119 [facility] WALK IN [place] [address] [place] [id number] [place] [address] 03490 -3297 12 Dec, 2016 Screen for STD (sexually transmitted disease) Z11.3 and Infection due to trichomonas (vaginalis) A59.9 [place] [id number] [place] [address] 66900- 2907 Dec, Severe major depression F32.2 and Intractable migraine with aura without status migrainosus G43.119 [place] [address] [place] [address] 15582- 2094 Oct, Anxiety, generalized F41.1 ; PTSD (post-traumatic stress disorder) F43.10 and Nightmares F51.5 [place] [address] [place] [address] 21620- 0333 Oct, Anxiety, generalized F41.1 ; PTSD (post-traumatic stress disorder) F43.10 and Nightmares F51.5 [place] [address] [place] [address] 06830- 2304 Oct, Anxiety, generalized F41.1 ; PTSD (post-traumatic stress disorder) F43.10 and Nightmares F51.5 [place] [address] [place] [id number] [place] [address] 35972- 5549 Oct, Myalgia M79.1 [place] [address] [place] [id number] [place] [address] 98043- 4146 Sep, Skin infection L08.9 [place] [address] 98661- 1766 July, Bronchitis J40 [facility]ALK IN [place] [address] [place] [id number] [place] [address] 75861 -6539 May, Acute middle ear effusion, right H65.191 [facility]ALK IN [place] [address] [place] [id number] [place] [address] 25534 -6684 May, Gastroenteritis and colitis, viral A08.4 [place] [address] 46660- 3006 May, control counseling Z30.09 [place] [address] [place] [id number] [place] [address] 46005- 4456 May, Abscess L02.91 [place] [address] [place] [id number] [place] [address] 03483- 8556 Mar, Bronchitis J40 [facility] [place] [id number] [place] [address] May [place] [address] [place] [id number] [place] [address] 48977- 7735 Apr, [place] [address] [place] [id number] [place] [address] 70446- 1778 Apr, Fungal rash of torso B36.9 ; Encounter for Depo-Provera contraception Z30.42 ; Breast feeding status of mother Z39.1 ; Rash R21 and Tension headache G44.209 [place] [address] [place] [id number] [place] [address] 01214- 8191 Apr, [place] [address] [place] [id number] [place] [address] 79789- 1375 Jan, Encounter for Depo-Provera contraception Z30.42 ; Routine follow-up Z39.2 and Depo contraception Z30.40 [facility] [address] [place] [id number] [place] [address] 79971- 2625 Dec, [facility] [address] 45873- 1241 Oct, [facility] [address] [place] [id number] [place] [address] 75634- 2608 Oct, Supervision of other normal V22.1 and Group B Streptococcus carrier, antepartum 648.93 [place] [address] [place] [id number] [place] [address] 54514- 7709 Oct, [place] [address] [place] [id number] [place] [address] 89010- 9492 Oct, screening for streptococcus B V28.6 and Supervision of other normal V22.1 [place] [address] [place] [id number] [place] [address] 19636- 9175 Oct, [place] [address] [place] [id number] [place] [address] 65632- 7898 Oct, [place] [address] [place] [id number] [place] [address] 02233- 2540 Oct, [facility] [address] [place] [id number] [place] [address] 53168- 0309 Sep, Supervision of other normal V22.1 and GERD ( gastroesophageal reflux disease) 530.81 [facility] [address] [place] [id number] [place] [address] 05529- 5851 Sep, [facility] [address] [place] [id number] [place] [address] 67067- 3170 Aug, [facility] [address] [place] [id number] [place] [address] 61582- 9544 Aug, Supervision of other normal V22.1 and TDAP DX V06.1 [facility] [address] [place] [id number] [place] [address] 80184- 8155 Aug, Supervision of other normal V22.1 ; Insect bite 919.4 and GERD (gastroesophageal reflux disease) 530.81 [facility] [address] [place] [id number] [place] [address] 79565- 0998 Aug, [facility] [address] 71833- 4203 July, [facility] [address] [place] [id number] [place] [address] 27245- 7527 July, Screening for diabetes mellitus V77.1 ; Screening, iron deficiency anemia V78.0 and Supervision of other normal V22.1 [facility] [address] [place] [id number] [place] [address] 37524- 9880 July, [facility] [address] [place] [address] [id number] [place] [address] 98266- 1591 Jul, [facility] [address] [id number] [place] [address] 74804- 3970 Jul, [facility] [address] [place] [id number] [place] [address] 96236- 6487 May, [facility] [address], [place] [address]- 3235 May, [facility] [address] [place] [id number] [place] [address] 04507- 5492 May, [facility] [id number] [address]- 9231 May, [facility] [id number] [place] [address] [id number] May, [facility] [id number] [address] May, [facility] [id number] [address] May, 2014 [facility] [address] [address] May, [facility] [id number] [address]- [address] May, [facility] [id number] [address] May, 2014 [facility] [id number] [address] May, [facility] [id number] [place] [id number]- 6340 May, [facility] [id number] [address] Apr, [facility] [id number] [address] Apr, [facility] [id number] [place] [address] Apr, [facility] [id number] [address] Apr, [facility] [id number] [place] [address] Mar, [facility] [id number] [address] Mar, IMMUNIZATIONS No Known Immunizations SOCIAL HISTORY Never Assessed REASON FOR VISIT f/u PLAN OF CARE Activity Details Follow Up Next available, 3 Weeks Reason:anxiety, depression, adjustment disorder VITAL SIGNS MEDICATIONS No Known Medications RESULTS No Results PROCEDURES Procedure Date Ordered Result Body Site Psychotherapy, patient &/family, 45 minutes, established patient Nov 14, 2016 INSTRUCTIONS MEDICATIONS ADMINISTERED No Known Medications MEDICAL (GENERAL) HISTORY Type Description Date Medical History migraine headaches Surgical History wisdom teeth extraction Hospitalization History Childbirth only
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
--- OUTSIDE RECORDS SUMMARY | 2017-08-28 23:11 | XMS REPORT ---
Author Author JULIANA DAILY Organization [facility] Address [address] [place] [address] Care Team Providers Care Land Leveler Name Role Phone JULIANA DAILY Unavailable PROBLEMS Type Condition ICD9-CM Code CXG56-JY Code Onset Dates Condition Status SNOMED Code Problem GERD (gastroesophageal reflux disease) 530.81 Active 465439241 Problem PTSD (post-traumatic stress disorder) F43.10 Active 08758242 Problem Anxiety, generalized F41.1 Active 29735937 Problem Chronic bronchitis, unspecified chronic bronchitis type J42 Active 73538691 Problem Other atopic dermatitis L20.89 Active 13757075 Problem Nightmares F51.5 Active 322066766 Problem Nightmare F51.5 Active 241077289 Problem Severe major depression F32.2 Active 030795189 Problem Intractable migraine with aura without status migrainosus G43.119 Active 924223823 ALLERGIES No Information ENCOUNTERS Encounter Location Date Diagnosis [facility] [address] [address] July, [facility] [address] [address] July, [facility] [address] [address] Jul, [facility] [address] [place] [id number] [place] [address] Jul, [facility] [address] [address] Jul, [facility] [address] [place] [id number] [place] [address] Jul, Visit for wound care Z51.89 [facility] [address] [place] [address] Jul, [facility] [address] [place] [address] [id number] [place] [address] Jul, Abscess L02.91 [facility] [id number] [place] [address] Jul, [facility] [address] [place] [id number] [place] [address] Jul, Abscess after procedure T81.4XXA [facility] [id number] [place] [address] Jul, Abscess after procedure T81.4XXA [facility] [address] [place] [address] [id number] [place] [address] Jul, Abscess L02.91 [place] [address] [place] [id number] [place] [address] May, Chronic bronchitis, unspecified chronic bronchitis type J42 [facility] [address] [place] [address] [id number] [place] [address] May, Viral gastroenteritis A08.4 [place] [address] [place] [id number] [place] [address] 7690 May, Rib pain on right side R07.81 [facility] [address] [place] [address] [id number] [place] [address] May, [facility] [id number] [place] [address]71[address] May, Severe major depression F32.2 [facility] [address] [place] [id number] [place] [address] May, Chlamydia infection A74.9 [facility] [id number] [place] [address] Apr, [facility] [id number] [place] [address] Apr, Screen for STD (sexually transmitted disease) Z11.3 [facility] WALK IN [facility] [id number] [place] [address] Apr, Fever R50.9 and Acute nasopharyngitis J00 [facility] [address] [place] [address] [id number] [place] [address]66- 7752 Mar, Cough R05 [place] [address] [address] Mar, Severe major depression F32.2 ; Cough R05 and Other atopic dermatitis L20.89 [facility] IN [place] [address] [address] Mar, Acute bacterial conjunctivitis of both eyes H10.33 [place] [address] [place] [id number] [place] [address] Mar, Severe major depression F32.2 and Intractable migraine with aura without status migrainosus G43.119 [facility] WALK IN [facility] [id number] [place] [address] Jan, Bronchitis J40 [facility] WALK [facility] [place] [address] [place] [id number] [place] [address] Jan, Acute bronchitis J20.9 [place] [address] [place] [id number] [place] [address] Dec, [facility] [address] [place] [address] [id number] [place] [address] Dec, Severe major depression F32.2 [facility] WALK [place] [address] [place] [id number] [place] [address] Dec, [facility] [address] [place] [id number] [place] [address] Dec, Anxiety, generalized F41.1 ; Severe major depression F32.2 and Intractable migraine with aura without status migrainosus G43.119 [facility] WALK [place] [id number] [place] [address] 12 Dec, 2016 Screen for STD (sexually transmitted disease) Z11.3 and Infection due to trichomonas (vaginalis) A59.[address] [address] 05 Dec, 2016 Severe major depression F32.2 and Intractable migraine with aura without status migrainosus G43.[address] [address] Oct, Anxiety, generalized F41.1 ; PTSD (post-traumatic stress disorder) F43.10 and Nightmares F51.[address] [address] Oct, Anxiety, generalized F41.1 ; PTSD (post-traumatic stress disorder) F43.10 and Nightmares F51.[address] [address] Oct, Anxiety, generalized F41.1 ; PTSD (post-traumatic stress disorder) F43.10 and Nightmares F51.[address] [address] Oct, Myalgia M79.[address] [address] Sep, Skin infection L08.[address] [address] July, Bronchitis J40 [facility] WALK IN [address] [address] May, Acute middle ear effusion, right H65.191 [facility] W[facility] IN [address] [address] 13 May, 2016 Gastroenteritis and colitis, viral A08.[address] [place] [address] May, control counseling Z30.09 [place] [address] [address] May, Abscess L02.91 [place] [address] [place] [id number] [place] [address] 58[address] Mar, Bronchitis J40 [facility] [place]AMBO[place] [id number] [place] [address] May [place] [address] [place] [id number] [place] [address] Apr, [place] [address] [address] Apr, Fungal rash of torso B36.9 ; Encounter for Depo-Provera contraception Z30.42 ; Breast feeding status of mother Z39.1 ; Rash R21 and Tension headache G44.209 [place] [address] [place] [id number] [place] [address] Apr, [place] [address] [address] Jan, Routine follow-up Z39.2 ; Encounter for Depo- Provera contraception Z30.42 and Depo contraception Z30.40 [place] [address] [place] [id number] [place] [address]707 Dec, [place] [address] [place] [id number] [place] [address] 06392- 2099 Oct, [place] [address] [place] [id number] [place] [address]- [address]79 Oct, Supervision of other normal V22.1 and Group B Streptococcus carrier, antepartum 648.93 [place] [address] [place] [id number] [place] [address]- 3973 Oct, [place] [address] [address] Oct, screening for streptococcus B V28.6 and Supervision of other normal V22.1 [place] [address] [place] [id number] [place] [address] 8[address]27- [address]99 Oct, [facility] [address] [place] [id number] [place] [address]- 2016 Oct, [place] [address] [address] Oct, [place] [address] [place] [id number] [place] [address] 10181- 0151 Sep, Supervision of other normal V22.1 and GERD ( gastroesophageal reflux disease) 530.81 [place] [address] [place] [id number] [place] [address]18- [address] Sep, [place] [address] [place] [id number] [place] [address] 80195- 6425 Aug, [place] [address] [place] [id number] [place] [address]59- 3151 Aug, Supervision of other normal V22.1 and TDAP DX V06.1 [place] [address] [place] [id number] [place] [address] 07208- 3657 Aug, Supervision of other normal V22.1 ; Insect bite 919.4 and GERD (gastroesophageal reflux disease) 530.81 [place] [address] [place] [id number] [place] [address] 5[address]30- 6[address] Aug, [place] [address] [place] [id number] [place] [address] 97032- 6581 July, [place] [address] [place] [id number] [place] [address] 00923- 2689 July, Screening for diabetes mellitus V77.1 ; Screening, iron deficiency anemia V78.0 and Supervision of other normal V22.1 [place] [address] [place] [id number] [place] [address] 31542- 1473 July, [facility] [place] [facility] [address] [id number] [place] [address] Jul, [facility] [place] [facility] [address] [id number] [place] [address] Jul, [facility] [place] [facility] [address] [id number] [place] [address] 6[address] May, [facility] [place] [facility] [address] [id number] [place] [address]- [address]58 May, [facility] [place] [facility] [address] [id number] [place] [address]- 9592 May, [facility] [place] [facility] [address] [id number] [place] [address]- 7178 May, [facility] [place] [facility] [address] [facility] [id number] [place] [address] May, [facility] [place] [facility] [address] [id number], [place] [address] May, [facility] [place] [facility] [address] [id number] [place] [address]- 5[address] May, [facility] [place] [facility] [address] [id number] [place] [address]- 7262 May, [facility] [place] [facility] [address] [id number] [place] [address]- 9203 May, [facility] [place] [facility] [address] [id number], [place] [address] May, [facility] [place] [facility] [address] [id number] [place] May, [facility] [place] [facility] [address] [id number] [place] May, [facility] [place] [facility] [address] [facility] [id number] [place] [address] 1693 Apr, [facility] [place] [facility] [address] [facility] [id number] [place] [address]- [address] Apr, [facility] [address] [facility] [id number], [place] [address] Apr, [facility] [address] [facility] [id number], [place] [address]46 Apr, [facility] [address] [facility] [id number], [place] [address] 2546 Mar, [facility] [address] [facility] [id number], [place] [address] 2546 Mar, IMMUNIZATIONS No Known Immunizations SOCIAL HISTORY Never Assessed REASON FOR VISIT Medication refill request PLAN OF CARE VITAL SIGNS MEDICATIONS Medication Instructions Dosage Frequency Start Date End Date Duration Status Zoloft 25 MG Orally Once a day 1/2 tablet x 1 week then 1 tab daily 24h Dec, 30 day(s) Active RESULTS No Results PROCEDURES No Known procedures INSTRUCTIONS MEDICATIONS ADMINISTERED No Known Medications MEDICAL (GENERAL) HISTORY Type Description Date Medical History migraine headaches Surgical History wisdom teeth extraction Hospitalization History Childbirth only
[2017-08-28] MEDS ORDERED: methylPREDNISolone 125 MG (Solu-MEDROL) VIAL IV STA (23:31)
[2017-08-28 23:48] LABS: BASOPHILS # (AUTO) 0.1 10^3/uL (0.0-0.1); BASOPHILS % (AUTO) 1 % (0-10); EOSINOPHILS # (AUTO) 0.2 10^3/uL (0.0-0.3); EOSINOPHILS % (AUTO) 2 % (0-10); HEMATOCRIT 42 % (35-52); HEMOGLOBIN 14.8 G/DL (11.5-16.0); LYMPHOCYTES # (AUTO) 3.3 X 10^3 (1.0-4.0); LYMPHOCYTES % (AUTO) 34 % (12-44); MEAN CORPUSCULAR HEMOGLOBIN 32 PG (25-34); MEAN CORPUSCULAR HGB CONC 36 G/DL (32-36); MEAN CORPUSCULAR VOLUME 90 FL (80-99); MEAN PLATELET VOLUME 10.5 FL (7.4-10.4); MONOCYTES # (AUTO) 0.6 X 10^3 (0.0-1.0); MONOCYTES % (AUTO) 6 % (0-12); NEUTROPHILS # (AUTO) 5.6 X 10^3 (1.8-7.8); NEUTROPHILS % (AUTO) 58 % (42-75); PLATELET COUNT 262 10^3/uL (130-400); RED BLOOD COUNT 4.62 10^6/uL (4.35-5.85); RED CELL DISTRIBUTION WIDTH 12.8 % (10.0-14.5); WHITE BLOOD COUNT 9.7 10^3/uL (4.3-11.0)
[2017-08-29 00:08] LABS: BUN/CREATININE RATIO 12; CALCIUM 9.7 MG/DL (8.5-10.1); CARBON DIOXIDE 21 MMOL/L (21-32); CHLORIDE 106 MMOL/L (98-107); CREATININE SERUM 0.81 MG/DL (0.60-1.30); GFR ESTIMATED > 60; GLUCOSE 92 MG/DL (70-105); POTASSIUM 3.8 MMOL/L (3.6-5.0); SODIUM 139 MMOL/L (135-145)
[2017-08-29] MEDS ORDERED: NS 250 ML (IVPB) BAG IV ONE (00:45)
[2017-08-29] MEDS ORDERED: IOHEXOL 350 MG/ML 100 ML (OMNIPAQUE 350) VIAL IV ONE (00:45)
[2017-08-29] MEDS ORDERED: cefTRIAXone INJECTION 1,000 MG in NS (IVPB) 50 ML IV ONE (01:15)
[2017-08-29] MEDS ORDERED: cefTRIAXone 1 GM (ROCEPHIN) VIAL ONE (01:18)
[2017-08-29] MEDS ORDERED: NS (IVPB) 50 ML ONE (01:18)
[2017-08-29] MEDS ORDERED: CEFD300C3 PO (01:35)
[2017-08-29] MEDS ORDERED: METH4TAB PO (01:35)
--- NOTE | 2017-08-29 01:35 | ED EENT ---
History of Present Illness General Chief Complaint: Oral/Throat Problems Stated Complaint: THROAT SWOLLEN,LOTS OF SALIVA Nursing Triage Note: swollen neck, sore throat, increased saliva production. Source: patient Exam Limitations: no limitations History of Present Illness Date Seen by Provider: August 28, 2017 Time Seen by Provider: 23:20 Initial Comments C/O SORE THROAT X 5 DAYS NO FEVER STATES SHE CAN'T SWALLOW LIQUIDS OR SALIVA DUE TO SEVERE PAIN STATES PAIN IS ON THE SIDES OF HER NECK AND GOING UP INTO HER EARS WAS SEEN AT [facility] TODAY FOR THIS PROBLEM AND HAD STREP TEST, WHICH WAS NEGATIVE, ACCORDING TO PT, PT STATES SHE WAS TOLD IT WAS FROM DRAINAGE FROM HER ALLERGIES BUT STATES SHE HAS NEVER HAD SEVERE PAIN LIKE THIS FROM ALLERGIES PT HAS NOT TAKEN ANYTHING FOR SYMPTOMS AT ANY TIME NO KNOWN SICK CONTACTS PCP:[facility] Allergies and Home Medications Allergies Coded Allergies: Penicillins (Unverified Allergy, Unknown, 05/18/14) latex (Unverified Allergy, Unknown, 05/18/14) Home Medications Cefdinir 300 Mg Capsule, 300 MG PO BID Prescribed by: SHIRA FENTON on 08/29/17134 Methylprednisolone 4 Mg Tab.ds.pk, 4 MG PO UD Prescribed by: SHIRA FENTON on 08/29/17134 Patient Home Medication List Home Medication List Reviewed: Yes Review of Systems Constitutional: no symptoms reported; No chills, No diaphoresis, No fever Eyes: No Symptoms Reported Ears: See HPI, Pain Nose: no symptoms reported (DENIES ANY ALLERGY SYMPTOMS) Mouth: no symptoms reported Throat: see HPI Respiratory: no symptoms reported; No cough, No short of breath, No wheezing Cardiovascular: no symptoms reported Gastrointestinal: no symptoms reported LMP: August 14, 2017 (1 WEEK EARLYNO CONTROL) Musculoskeletal: see HPI, neck pain Skin: no symptoms reported; No rash; other (PT STATES SHE HAD AN ABSCESS IN MONS/PUBIC AREA LAST MONTH AND HAD I&D AND PACKING FOR 5 WEEKS--WAS ON BACTRIM AND CLINDAMYCIN--STOPPED MEDICATIONS 2 WEEKS AGO AND AREA IS FINE) Neurological: No Symptoms Reported; Denies Headache Hematologic/Lymphatic: No Symptoms Reported Immunological/Allergic: no symptoms reported Past Kgtsobm-Uwtdda-Fhsxff Hx Patient Social History Alcohol Use: Occasionally Uses Recreational Drug Use: No Smoking Status: Current Everyday Smoker (1 PPD) Type Used: Cigarettes Recent Foreign Travel: No Contact w/Someone Who Travel: No Recent Infectious Disease Expo: No Recent Hopitalizations: No Immunizations Up To Date Tetanus Booster (TDap): Less than 5yrs Seasonal Allergies Seasonal Allergies: Yes Past Medical History Surgeries: Yes (I&D'S OF ABSCESSES) Respiratory: No Cardiac: No Neurological: Yes Headaches /Migraines : No Last Menstrual Period: August 14, 2017 Reproductive Disorders: No Female Reproductive Disorders: Denies Sexually Transmitted Disease: No HIV/AIDS: No Genitourinary: No Gastrointestinal: No Musculoskeletal: No Endocrine: No HEENT: No Cancer: No Psychosocial: Yes Depression Integumentary: Yes (ABSCESSES) Blood Disorders: No Adverse Reaction/Blood Tranf: No Family Medical History Autism in sibling G8 BROTHER, Onset:Childhood Cancer of mouth Physical Exam Vital Signs Vital Signs - First Documented 08/28/17 23:07 Temp 97.4 Pulse 98 Resp 18 B/P (MAP) 121/84 (96) Pulse Ox 98 O2 Delivery Room Air General Appearance: WD/WN, no apparent distress, other (SMILING, TEXTING/ PLAYING ON PHONE. DOES NOT APPEAR TO BE IN ANY DISCOMFORT OR DISTRESS. PT IS NOT DROOLING) Eyes: bilateral eye normal inspection, bilateral eye PERRL, bilateral eye EOMI Ears: left ear TM red (MILD) Mouth/Throat: No mandibular swelling, No maxillary swelling, No tonsillar swelling, No trismus, No uvula swelling, No voice changes; other (TONSILS ARE 1 + IN SIZE BILATERALLY BUT DO NOT APPEAR SIGNIFICANTLY ERYTHEMATOUS, NO EXUDATED. POSTERIOR PHARYNX IS MARKEDLY INFLAMED WITH COBBLESTONING AND LIGHT YELLOW POST NASAL DRAINAGE. NO SINUS TENDERNESS. NO NASAL MUCOSAL EDEMA. NO EXCESS SALIVA AND PT CAN SWALLOW SECRETIONS. VOICE IS NORMAL ) Neck: full range of motion, supple, normal inspection, lymphadenopathy (R) ( MILD ANTERIOR), lymphadenopathy (L) (MILD ANTERIOR) Cardiovascular: regular rate, rhythm, no edema, no murmur Respiratory: normal breath sounds, no respiratory distress, no accessory muscle use Gastrointestinal: normal bowel sounds, non tender, soft, no organomegaly Neurologic/Psychiatric: speech lang path therapist II-XII nml as tested, no motor/sensory deficits, alert, normal mood/affect, oriented x 3 Skin: normal color, warm/dry; No rash Progress/Results/Core Measures Results/Orders Lab Results Laboratory Tests Test 08/28/17 23:40 Range/Units White Blood Count 9.7 4.3-11.0 10^3/uL Red Blood Count 4.62 4.35-5.85 10^6/uL Hemoglobin 14.8 11.5-16.0 G/DL Hematocrit 42 35-52 % Mean Corpuscular Volume 90 80-99 FL Mean Corpuscular Hemoglobin 32 25-34 PG Mean Corpuscular Hemoglobin Concent 36 32-36 G/DL Red Cell Distribution Width 12.8 10.0-14.5 % Platelet Count 262 130-400 10^3/uL Mean Platelet Volume 10.5 H 7.4-10.4 FL Neutrophils (%) (Auto) 58 42-75 % Lymphocytes (%) (Auto) 34 12-44 % Monocytes (%) (Auto) 6 0-12 % Eosinophils (%) (Auto) 2 0-10 % Basophils (%) (Auto) 1 0-10 % Neutrophils # (Auto) 5.6 1.8-7.8 X 10^3 Lymphocytes # (Auto) 3.3 1.0-4.0 X 10^3 Monocytes # (Auto) 0.6 0.0-1.0 X 10^3 Eosinophils # (Auto) 0.2 0.0-0.3 10^3/uL Basophils # (Auto) 0.1 0.0-0.1 10^3/uL Sodium Level 139 135-145 MMOL/L Potassium Level 3.8 3.6-5.0 MMOL/L Chloride Level 106 98-107 MMOL/L Carbon Dioxide Level 21 21-32 MMOL/L Anion Gap 12 5-14 MMOL/L Blood Urea Nitrogen 10 7-18 MG/DL Creatinine 0.81 0.60-1.30 MG/DL Estimat Glomerular Filtration Rate > 60 BUN/Creatinine Ratio 12 Glucose Level 92 70-105 MG/DL Calcium Level 9.7 8.5-10.1 MG/DL Serum Test, Qualitative NEGATIVE NEGATIVE Monoscreen NEGATIVE NEGATIVE My Orders Orders - SHIRA FENTON K DO Saline Lock/Iv-Start (08/28/17 23:31) Basic Metabolic Panel (08/28/17 23:31) Cbc With Automated Diff (08/28/17 23:31) Hcg,Qualitative Serum (08/28/17 23:31) Monotest (5/29/18 23:31) Methylprednisolone Sod Succ (Solu-Medrol (08/28/17 23:31) Throat Culture (08/28/17 23:32) Ct Neck (Soft Tissue) W (08/29/17 00:01) Iohexol Injection (Omnipaque 350 Mg/Ml 1 (08/29/17 00:45) Ns (Ivpb) (Sodium Chloride 0.9%) (08/29/17 00:45) Ceftriaxone Injection (Rocephin Injectio (08/29/17 01:15) Ceftriaxone Injection (Rocephin Injectio (08/29/17 01:18) Ns (Ivpb) (Sodium Chloride 0.9% Ivpb Bag (08/29/17 01:18) Medications Given in ED Current Medications Medications Dose Ordered Sig/Frank Route Start Time Stop Time Status Last Admin Dose Admin Ceftriaxone Sodium 1000 mg/ Sodium Chloride 50 ml @ 100 mls/hr ONCE ONCE IV 08/29/17 01:15 08/29/17 01:43 DC 08/29/17 01:29 100 MLS/HR Iohexol 100 ml ONCE ONCE IV 08/29/17 00:45 08/29/17 00:47 DC 08/29/17 00:43 100 ML Sodium Chloride 250 ml ONCE ONCE IV 08/29/17 00:45 08/29/17 00:47 DC 08/29/17 00:43 80 ML Vital Signs/I&O 08/28/17 08/29/17 23:07 01:43 Temp 97.4 97.4 Pulse 98 87 Resp 18 16 B/P (MAP) 121/84 (96) 111/87 (96) Pulse Ox 98 98 O2 Delivery Room Air Room Air Blood Pressure Mean: 96 Progress Progress Note : Progress Note PAIN IS MUCH BETTER AND CAN SWALLOW EASIER AFTER SOLU-MEDROL GIVEN Diagnostic Imaging Comments CT NECK SOFT TISSUE--MILD PATCHY GROUNDGLASS OPACITIES IN POSTERIOR ASPECT OF RIGHT APEX, MILD PROMINENCE OF BILATERAL PALATINE TONSILS. MILD ENLARGEMENT OF BILATERAL LYMPH NODES, LIKELY REACTIVE. NO ABSCESS--PER [facility] VIA FAX @ 0554 Reviewed: Reviewed by Me Departure Impression Primary Impression: Pharyngitis Additional Impression: Left otitis media Disposition: 01 HOME, SELF-CARE Condition: Improved Departure-Patient Inst. Referrals: JULIANA DAILY MD (PCP) Primary Care Physician [facility] (Family) Primary Care Physician Patient Instructions: Ear Infections (Otitis Media) (DC), Sore Throat, Adult ( DC) Add. Discharge Instructions: LOTS OF CLEAR LIQUIDS FREQUENT SALT WATER GARGLES TYLENOL AND MOTRIN NEEDED FOR PAIN OR FEVER OVER THE COUNTER CLARITIN AND FLONASE FOR ALLERGIES FOLLOW UP WITH YOUR DR IN 3-4 DAYS IF NO BETTER All discharge instructions reviewed with patient and/or family. Voiced understanding. Scripts Methylprednisolone (Medrol) 4 Mg Tab.ds.pk 4 MG PO UD, #1 PKG Prov: SHIRA FENTON DO 08/29/17 Cefdinir (Cefdinir) 300 Mg Capsule 300 MG PO BID for FOR INFECTION, #20 CAP Prov: SHIRA FENTON DO 08/29/17 SHIRA FENTON DO August 29, 2017 01:35
[2017-08-29 01:43] VITALS: BP 111/87
--- NOTE | 2017-08-29 07:43 | Diagnostic Imaging Report ---
PROCEDURE: CT neck soft tissue with contrast. TECHNIQUE: Multiple contiguous axial images were obtained through the neck after the administration of contrast. INDICATION: Hoarseness and sore throat x5 days. FINDINGS: There is good opacification of the cervical vessels following IV contrast. There are scattered cervical chain lymph nodes noted diffusely throughout both anterior and posterior to the carotid arteries as well as beneath the sternocleidomastoids. Largest lymph nodes measure approximately 1.3 cm. These are rather symmetrical and uniform in appearance. Tissue planes are well-preserved along the neck. The thyroid gland appears normal with good opacification. The palatine tonsils are slightly prominent bilaterally though symmetrical. There is normal enhancement without evidence of abscess. The surrounding tissue planes appear normal in the parapharyngeal region. Epiglottis is normal. The vallecula and piriform sinuses are normal. Submandibular glands and parotid glands are normal. There is mucosal thickening within the paranasal sinuses especially the maxillary sinuses. There is noted mild infiltrate present posteriorly in the right upper lobe. There are no destructive bony changes. IMPRESSION: 1. There is a diffuse cervical chain adenopathy noted bilaterally. This is nonspecific in nature and could be inflammatory. 2. Mild prominence of the palatine tonsils bilaterally without evidence of abscess. 3. Mucosal thickening in the maxillary sinuses consistent with chronic inflammatory changes. 4. Mild infiltrate noted in the right upper lung. Dictated by: Dictated on workstation # [id number]
== END 2017-08-29 01:43 | disposition home or self-care (01) ==
LOC: EDUNIT# 23:03 → ER 23:05
DX: J02.9 Acute pharyngitis, unspecified (principal); H66.92 Otitis media, unspecified, left ear; G43.909 Migraine, unspecified, not intractable, without status migrainosus; F32.9 Major depressive disorder, single episode, unspecified; F17.210 Nicotine dependence, cigarettes, uncomplicated; Z87.2 Personal history of diseases of the skin and subcutaneous tissue; Z88.0 Allergy status to penicillin; Z91.040 Latex allergy status
CPT/HCPCS: 36415; 70491; 80048; 84703; 85025; 86308; 87070; 87077; 96374; 96375

== ENCOUNTER 2019-03-25 17:44 | Emergency (ER) | payer MEDICAID, OTHER ==
[~2019-03-25] VITALS: Ht 170.2 cm; Wt 92.5 kg
[~2019-03-25 17:44] MED LIST changes: +CEFD300C3 PO; +HYDR-4226 PO; -HYDR-757 PO; +METH4TAB PO
[2019-03-25 17:49] VITALS: BP 128/84
--- NOTE | 2019-03-25 18:12 | ED Integumentary General ---
General Chief Complaint: Skin/Wound Problems Stated Complaint: RASH Nursing Triage Note: PT AMB TO TRIAGE WITH COMPLAINT OF RASH ON LEFT ARM AND TRUNK. STATES STARTED AROUND NOON TODAY. Source: patient Exam Limitations: no limitations History of Present Illness Date Seen by Provider: Mar 25, 2019 Time Seen by Provider: 18:06 Initial Comments To ER with sudden onset of itchy rash that began on the left upper outer arm, has since spread to just below the umbilicus, left and right flank. History of this happening before, she had a friend who had a similar rash tell her this could be shingles. No recent illness, no exposure to known allergens. Timing/Duration: just prior to arrival Severity: moderate Possible Cause: no cause identified Modifying Factors: improves with other Associated Symptoms: denies symptoms Allergies and Home Medications Allergies Coded Allergies: Penicillins (Unverified Allergy, Unknown, 05/18/14) latex (Unverified Allergy, Unknown, 05/18/14) Home Medications Cefdinir 300 Mg Capsule, 300 MG PO BID Prescribed by: SHIRA FENTON on 08/29/17134 Methylprednisolone 4 Mg Tab.ds.pk, 4 MG PO UD Prescribed by: SHIRA FENTON on 08/29/17134 Patient Home Medication List Home Medication List Reviewed: Yes Review of Systems Review of Systems Constitutional: see HPI EENTM: see HPI Respiratory: no symptoms reported Cardiovascular: no symptoms reported Genitourinary: no symptoms reported Musculoskeletal: no symptoms reported Skin: see HPI Psychiatric/Neurological: No Symptoms Reported Past Njfzjog-Rukhyp-Jducsw Hx Patient Social History Alcohol Use: Rarely Uses Recreational Drug Use: No Smoking Status: Former Smoker Type Used: Cigarettes, Electronic/Vapor Recent Foreign Travel: No Contact w/Someone Who Travel: No Recent Infectious Disease Expo: No Recent Hopitalizations: No Immunizations Up To Date Tetanus Booster (TDap): Unknown PED Vaccines UTD: Yes Seasonal Allergies Seasonal Allergies: Yes Past Medical History Surgeries: Yes (I&D'S OF ABSCESSES) Respiratory: No Cardiac: No Neurological: Yes Headaches /Migraines Reproductive Disorders: No Female Reproductive Disorders: Denies Sexually Transmitted Disease: No HIV/AIDS: No Genitourinary: No Gastrointestinal: No Musculoskeletal: No Endocrine: No HEENT: No Cancer: No Psychosocial: Yes Depression Integumentary: Yes (ABSCESSES) Blood Disorders: No Adverse Reaction/Blood Tranf: No Family Medical History Autism in sibling G8 BROTHER, Onset:Childhood Cancer of mouth Physical Exam Vital Signs Vital Signs - First Documented 03/25/19 17:49 Pulse 84 Resp 20 B/P (MAP) 128/84 (99) Pulse Ox 99 O2 Delivery Room Air Capillary Refill : Less Than 3 Seconds General Appearance: WD/WN, no apparent distress HEENT: PERRL/EOMI, normal ENT inspection Neck: non-tender, full range of motion Respiratory: lungs clear, normal breath sounds, no respiratory distress, no accessory muscle use Extremities: normal range of motion, non-tender Neurologic/Psychiatric: alert, normal mood/affect, oriented x 3 Skin: normal color, warm/dry Skin Problem Location: generalized Skin Problem Character: urticarial (urticarial type rash to the left upper arm, right and left flank, infraumbilical.) Progress/Results/Core Measures Results/Orders My Orders Orders - RITCHIE LAMBERT APRN Prednisone Tablet (Deltasone Tablet) (03/25/19 18:15) Diphenhydramine Tablet (Benadryl Tablet) (03/25/19 18:15) Vital Signs/I&O 03/25/19 17:49 Pulse 84 Resp 20 B/P (MAP) 128/84 (99) Pulse Ox 99 O2 Delivery Room Air Blood Pressure Mean: 99 Departure Impression Primary Impression: Urticaria Disposition: 01 HOME, SELF-CARE Condition: Improved Departure-Patient Inst. Decision time for Depature: 18:10 Referrals: JULIANA DAILY MD (PCP) Primary Care Physician [facility] (Family) Primary Care Physician Patient Instructions: Eveline (ANISHA) Add. Discharge Instructions: 1. Return to ER for any concerns 2. Follow-up with your doctor next week 3. Take steroids as directed for tomorrow. Use Benadryl one tablet every 4-6 hours as needed for itching Work/School Note: Work Release Form Date Seen in the Emergency Department: Mar 25, 2019 Return to Work: Mar 27, 2019 RITCHIE LAMBERT APRN Mar 25, 2019 18:11
[2019-03-25] MEDS ORDERED: predniSONE 20 MG TAB PO ONE (18:15)
[2019-03-25] MEDS ORDERED: diphenhydrAMINE 25 MG TAB (BENADRYL) PO ONE (18:15)
== END 2019-03-25 18:18 | disposition home or self-care (01) ==
LOC: EDUNIT# 17:44 → ER 17:45
DX: L50.9 Urticaria, unspecified (principal); G43.909 Migraine, unspecified, not intractable, without status migrainosus; F32.9 Major depressive disorder, single episode, unspecified; Z88.0 Allergy status to penicillin; Z91.040 Latex allergy status; Z87.891 Personal history of nicotine dependence; Z80.0 Family history of malignant neoplasm of digestive organs
CPT/HCPCS: 99282

== ENCOUNTER 2019-03-27 19:57 | Emergency (ER) | payer MEDICAID ==
[2019-03-27] MEDS ORDERED: RT-ALBUINH IH (21:57)
[2019-03-27] MEDS ORDERED: FLUT9.9S NSEACH (21:57)
--- NOTE | 2019-03-27 21:57 | ED General ---
General Chief Complaint: Cough/Cold/Flu Symptoms Stated Complaint: SORE THROAT,COUGH,CONGESTION Nursing Triage Note: AMBULATORY TO ED ROOM 5 WITH C/O COUGH SINCE 03/25, SORE THROAT STARTED YESTERDAY, BODY ACHES, POSSIBLE FEVER, BILATERAL EARACHE. STATES ONLY MEDICATIONS TAKEN IS NYQUIL LAST NIGHT. Nursing Sepsis Screen: Possible Sepsis Risk Source of Information: Patient Exam Limitations: No Limitations History of Present Illness Date Seen by Provider: Mar 27, 2019 Time Seen by Provider: 21:46 Initial Comments This 23-year-old young lady presents to the emergency room with complaints of flulike symptoms including cough, sore throat, body aches, subjective fever, and earaches since March 25. She is afebrile at present. She reports having episodes of bronchitis just about every year. She no longer smokes but Patel. Allergies and Home Medications Allergies Coded Allergies: Penicillins (Unverified Allergy, Unknown, 05/18/14) latex (Unverified Allergy, Unknown, 05/18/14) Home Medications Albuterol Sulfate 1 Puff Puff, 2 PUFF IH Q4H PRN for WHEEZING 1 PUFF = 90 MCG Prescribed by: LUZ VOGT on 03/27/192156 Cefdinir 300 Mg Capsule, 300 MG PO BID Prescribed by: SHIRA FENTON on 08/29/17134 Fluticasone Propionate 9.9 Ml [place].susp, 2 SPRAY NSEACH DAILY 2 SPRAYS PER NOSTRIL DAILY X 2 DAYS THEN 1 SPRAY DAILY Prescribed by: LUZ VOGT on 03/27/192156 Methylprednisolone 4 Mg Tab.ds.pk, 4 MG PO UD Prescribed by: SHIRA FENTON on 08/29/17134 Patient Home Medication List Home Medication List Reviewed: Yes Review of Systems Review of Systems Constitutional: see HPI EENTM: see HPI Respiratory: see HPI Cardiovascular: no symptoms reported Gastrointestinal: no symptoms reported Genitourinary: no symptoms reported : No LMP: Mar 27, 2019 Musculoskeletal: see HPI Skin: no symptoms reported Psychiatric/Neurological: See HPI Hematologic/Lymphatic: No Symptoms Reported Past Spuxcck-Eakjtm-Rmokdp Hx Past Med/Social Hx: Reviewed and Corrections made Patient Social History Alcohol Use: Occasionally Uses Recreational Drug Use: No Smoking Status: Current Everyday Smoker Type Used: Electronic/Vapor Recent Foreign Travel: No Contact w/Someone Who Travel: No Recent Infectious Disease Expo: No Recent Hopitalizations: No Physical Abuse: No Sexual Abuse: No Mistreated: No Fear: No Immunizations Up To Date Tetanus Booster (TDap): Unknown PED Vaccines UTD: Yes Seasonal Allergies Seasonal Allergies: Yes Past Medical History Surgeries: Yes (I&D'S OF ABSCESSES) Respiratory: No Cardiac: No Neurological: Yes Headaches /Migraines Reproductive Disorders: No Female Reproductive Disorders: Denies Sexually Transmitted Disease: No HIV/AIDS: No Genitourinary: No Gastrointestinal: No Musculoskeletal: No Endocrine: Yes (vitamin D deficiency) HEENT: No Cancer: No Psychosocial: Yes Depression Integumentary: Yes (ABSCESSES) Blood Disorders: No Adverse Reaction/Blood Tranf: No Family Medical History Autism in sibling G8 BROTHER, Onset:Childhood Cancer of mouth Physical Exam Vital Signs Vital Signs - First Documented 03/27/19 03/27/19 20:38 22:03 Temp 37.2 Pulse 93 Resp 18 B/P (MAP) 117/87 (97) Pulse Ox 98 O2 Delivery Room Air Capillary Refill : Less Than 3 Seconds Height, Weight, BMI Height: 5'7.00" Weight: 194lbs. oz. 87.816161tx; 31.00 BMI Method:Stated General Appearance: No Apparent Distress, WD/WN HEENT: PERRL/EOMI, TMs Normal, Normal ENT Inspection, Pharynx Normal Neck: Normal Inspection Respiratory: Lungs Clear, Normal Breath Sounds, No Accessory Muscle Use, No Respiratory Distress, Other (prolonged expiratory phase) Cardiovascular: Regular Rate, Rhythm, No Edema, No Murmur Gastrointestinal: Non Tender, Soft Extremity: Normal Inspection, No Pedal Edema Neurologic/Psychiatric: Alert, Oriented x3, No Motor/Sensory Deficits, Normal Mood/Affect, commercial finance analyst II-XII Norm as Tested Skin: Normal Color, Warm/Dry Progress/Results/Core Measures Suspected Sepsis Recent Fever Within 48 Hours: Yes Infection Criteria Present: Suspected New Infection New/Unexplained Altered Menta: No Sepsis Screen: Possible Sepsis Risk SIRS Temperature: Pulse: 93 Respiratory Rate: 18 Blood Pressure 117 /87 Mean: 97 Results/Orders Lab Results Laboratory Tests Test 03/27/19 20:45 Range/Units Group A Streptococcus Screen NEGATIVE NEGATIVE Micro Results Microbiology 03/27/19 Influenza Types A,B Antigen (BOBY) - Final, Complete My Orders Orders - LUZ HORTA MD Rapid Strep A Screen (03/27/19 20:25) Influenza A And B Antigens (03/27/19 20:25) Vital Signs/I&O 03/27/19 03/27/19 03/27/19 20:38 20:38 22:03 Temp 37.2 37.2 Pulse 93 90 Resp 18 18 B/P (MAP) 117/87 (97) 115/88 (97) Pulse Ox 98 O2 Delivery Room Air Room Air Capillary Refill : Less Than 3 Seconds Blood Pressure Mean: 97 Progress Note : Progress Note Fluid and influenza screens were negative. Patient and prolonged expiratory phase on forced expiration. Inhaler was prescribed. Departure Impression Primary Impression: Flu-like symptoms Additional Impression: Bronchitis, acute Qualified Codes: J20.9 - Acute bronchitis, unspecified Disposition: 01 HOME, SELF-CARE Condition: Improved Departure-Patient Inst. Decision time for Depature: 21:54 Referrals: JULIANA DAILY MD (PCP/Family) Primary Care Physician Patient Instructions: Acute Bronchitis, Adult (DC) Add. Discharge Instructions: Work toward quitting breathing/smoking as soon as possible and completely. Use your inhaler as prescribed for wheezing, shortness of breath, or uncontrolled cough. Stay well hydrated with plenty of clear liquids. For discomfort you may use Tylenol and/or ibuprofen. For nasal congestion and drainage going down your throat you may try a nasal spray such as Flonase. Return to care if you have worsening symptoms despite these treatments. All discharge instructions reviewed with patient and/or family. Voiced understanding. Scripts Albuterol Sulfate (PROAIR HFA) 1 Puff Puff 2 PUFF IH Q4H PRN for WHEEZING, #1 PUFF 1 PUFF = 90 MCG Prov: LUZ HORTA MD 03/27/19 Fluticasone Propionate (Flonase Allergy Relief) 9.9 Ml [place].susp 2 SPRAY NSEACH DAILY, #1 EACH 2 SPRAYS PER NOSTRIL DAILY X 2 DAYS THEN 1 SPRAY DAILY Prov: LUZ HORTA MD 03/27/19 Work/School Note: Work Release Form Date Seen in the Emergency Department: Mar 27, 2019 Return to Work: Mar 29, 2019 Restrictions: No Restrictions LUZ HORTA MD Mar 27, 2019 21:57
[2019-03-27 22:03] VITALS: BP 115/88
== END 2019-03-27 22:03 | disposition home or self-care (01) ==
LOC: EDUNIT# 19:57 → ER 19:58
DX: J20.9 Acute bronchitis, unspecified (principal); G43.909 Migraine, unspecified, not intractable, without status migrainosus; F32.9 Major depressive disorder, single episode, unspecified; F17.290 Nicotine dependence, other tobacco product, uncomplicated; Z88.0 Allergy status to penicillin; Z91.040 Latex allergy status; Z79.52 Long term (current) use of systemic steroids; Z80.8 Family history of malignant neoplasm of other organs or systems
CPT/HCPCS: 87430; 87804

== ENCOUNTER 2021-12-01 14:50 | Emergency (ER) | payer SELFPAY ==
[~2021-12-01 14:50] MED LIST changes: +FLUT9.9S NSEACH; +RT-ALBUINH IH; +SERT-412; -SERT25TA5; -SULF1TAB35 PO; +SULF1TAB38 PO
[2021-12-01 14:56] VITALS: BP 133/91
--- NOTE | 2021-12-01 15:08 | ED EENT ---
History of Present Illness General Chief Complaint: Oral/Throat Problems Stated Complaint: FOOD STUCK IN THROAT History of Present Illness Date Seen by Provider: Dec 01, 2021 Time Seen by Provider: 14:50 Initial Comments 26-year-old female presents emerged from today for something stuck in her throat. She states she was eating [place] food with her son and noticed i rritation in her left posterior throat. She states she can see the area behind her tonsil on the left side. No difficulty swallowing her spit. No nausea vomiting Allergies and Home Medications Allergies Coded Allergies: Penicillins (Unverified Allergy, Unknown, 05/18/14) latex (Unverified Allergy, Unknown, 05/18/14) Patient Home Medication List Home Medication List Reviewed: Yes Albuterol Sulfate (Proair Hfa) 1 Puff Puff, 2 PUFF IH Q4H PRN for WHEEZING Prescribed by: LUZ VOGT on 03/27/192156 Cefdinir (Cefdinir) 300 Mg Capsule, 300 MG PO BID Prescribed by: SHIRA FENTON on 08/29/17134 Fluticasone Propionate (Flonase Allergy Relief) 9.9 Ml Doss.susp, 2 SPRAY NSEACH DAILY Prescribed by: LUZ VOGT on 03/27/192156 Methylprednisolone (Medrol) 4 Mg Tab.ds.pk, 4 MG PO UD Prescribed by: SHIRA FENTON on 08/29/17134 Propranolol HCl (Propranolol HCl) 20 Mg Tablet, (Reported) Entered as Reported by: JUAN ALBERTO UPTON on 07/12/172239 Sertraline HCl (Sertraline HCl) 25 Mg Tablet, (Reported) Entered as Reported by: JUAN ALBERTO UPTON on 07/12/172239 Review of Systems Review of Systems Constitutional: no symptoms reported Eyes: No Symptoms Reported Ears: No Symptoms Reported Nose: no symptoms reported Mouth: other (Foreign body left tonsillar region) Throat: no symptoms reported Respiratory: no symptoms reported Cardiovascular: no symptoms reported Gastrointestinal: no symptoms reported Musculoskeletal: no symptoms reported Skin: no symptoms reported Neurological: No Symptoms Reported Hematologic/Lymphatic: No Symptoms Reported Past [id number]-[id number] Hx Patient Social History Tobacco Use?: No Use of E-Cig and/or Vaping dev: Yes E-Cig or Vaping type used: Nicotine Substance use?: No Substance type: Other Additional substance use comme: DELTA 8 Alcohol Use?: Yes Alcohol Frequency: Once in a while Pt feels they are or have been: No Immunizations Up To Date Tetanus Booster (TDap): Unknown PED Vaccines UTD: Yes Influenza Vaccine Up-to-Date: No; Not Current Seasonal Allergies Seasonal Allergies: Yes Past Medical History Surgery/Hospitalization HX: HTN, Surgeries: Yes (I&D'S OF ABSCESSES) Respiratory: No Cardiac: No Neurological: Yes Headaches /Migraines Reproductive Disorders: No Female Reproductive Disorders: Denies Sexually Transmitted Disease: No HIV/AIDS: No Genitourinary: No Gastrointestinal: No Musculoskeletal: No Endocrine: Yes (vitamin D deficiency) HEENT: No Cancer: No Psychosocial: Yes Depression Integumentary: Yes (ABSCESSES) Blood Disorders: No Adverse Reaction/Blood Tranf: No Family Medical History Reviewed Nursing Family Hx Autism in sibling G8 BROTHER, Onset:Childhood Cancer of mouth No Pertinent Family Hx Physical Exam Height, Weight, BMI Height: 5'7.00" Weight: 194lbs. oz. 87.820000ij; 31.00 BMI Method:Stated General Appearance: WD/WN, no apparent distress Nose: normal inspection Mouth/Throat: other (There is a white lucent foreign body in the left tonsillar pillar region that is visible.) Neck: non-tender, supple, normal inspection Cardiovascular: regular rate, rhythm, no edema, no gallop, no JVD, no murmur Respiratory: chest non-tender, lungs clear, normal breath sounds, no respiratory distress, no accessory muscle use Gastrointestinal: normal bowel sounds, non tender, soft, no organomegaly Neurologic/Psychiatric: alert, oriented x 3 Departure Communication (Admissions) Foreign body visualized and removed with forceps without difficulty. Appears to be a chicken bone. Patient feeling better. Discharged in stable condition peer Impression Primary Impression: Esophageal foreign body Qualified Codes: T18.108A - Unspecified foreign body in esophagus causing other injury, initial encounter Disposition: 01 HOME, SELF-CARE Condition: Stable Departure-Patient Inst. Decision time for Depature: 15:08 Referrals: JULIANA DAILY MD (PCP/Family) Primary Care Physician Patient Instructions: Removal of Foreign Body, Swallowed, Adult Add. Discharge Instructions: Use mouthwash and salt water gargles as needed. Motrin or Tylenol for pain. Return to the emergency department for any severe concerns. All discharge instructions reviewed with patient and/or family. Voiced understanding. JEREMIAH PALMA DO Dec 01, 2021 15:08
== END 2021-12-01 15:13 | disposition home or self-care (01) ==
LOC: EDUNIT# 14:50 → ER 14:52
DX: T18.128A Food in esophagus causing other injury, initial encounter (principal); F17.290 Nicotine dependence, other tobacco product, uncomplicated; Z91.040 Latex allergy status; Z28.310 Unvaccinated for COVID-19
CPT/HCPCS: 99281